=== PATIENT | female | born 1995 | race Caucasian/White ===

== ENCOUNTER 2017-12-14 07:57 | Outpatient (CLI) | payer MEDICAID, SELFPAY ==
[2017-12-14 09:08] LABS: Glucose,1 Hr (Glucola) 113 mg/dL (80-140)
== END 2017-12-14 08:17 ==
PROVIDERS: PCP Nurse Practitioner Family; Visit Provider Advanced Practice Midwife
DX: Z34.93 Encounter for supervision of normal pregnancy, unspecified, third trimester (principal)
CPT/HCPCS: 36415; 82950

== ENCOUNTER 2017-12-28 11:52 | Outpatient (REF) | payer MEDICAID, SELFPAY ==
[2017-12-28 14:52] LABS: Bilirubin Negative (Negative); Blood Negative (Negative); Clarity Clear; Glucose Negative (Negative); Ketones Negative (Negative); Leukocyte Esterase Moderate (Negative); Nitrite Negative (Negative); Specific Gravity 1.015 (1.005-1.025); Urobilinogen 0.2 EU/dL (Up TO 0.2); pH 7.5 (5-8)
[2017-12-28 15:12] LABS: Bacteria Negative HPF (Negative); C & S Indicated? Yes; Casts Negative LPF (Negative); Crystals Negative HPF (Negative); Epithelial Cells Rare HPF (Negative); Mucus Negative (Negative); Other Cells Rare Renal (Negative); RBC 0-2 (0-2); WBC 0-2 HPF (0-5)
== END 2017-12-28 12:12 ==
LOC: LBN 11:52
PROVIDERS: PCP Nurse Practitioner Family; Visit Provider Advanced Practice Midwife
DX: Z34.91 Encounter for supervision of normal pregnancy, unspecified, first trimester (principal)
CPT/HCPCS: 81003; 81015; 87086

== ENCOUNTER 2018-01-31 09:33 | Observation (INO) | payer MEDICAID, SELFPAY | END 2018-01-31 13:15 | disposition home or self-care (01) | PROVIDERS: Admitting Provider Advanced Practice Midwife; PCP Nurse Practitioner Family; Visit Provider Advanced Practice Midwife | DX: Z04.3 Encounter for examination and observation following other accident (principal); W19.XXXA Unspecified fall, initial encounter; Z3A.34 34 weeks gestation of pregnancy | CPT/HCPCS: G0378 ==

== ENCOUNTER 2018-02-08 17:33 | Outpatient (REF) | payer MEDICAID, SELFPAY | END 2018-02-08 17:53 | LOC: LBO 17:33 | PROVIDERS: PCP Nurse Practitioner Family; Visit Provider Advanced Practice Midwife | DX: Z34.93 Encounter for supervision of normal pregnancy, unspecified, third trimester (principal); Z36.85 Encounter for antenatal screening for Streptococcus B | CPT/HCPCS: 87081 ==

== ENCOUNTER 2018-03-04 13:37 | Inpatient (IN) | payer MEDICAID, SELFPAY ==
[2018-03-04 17:53] LABS: HCT 37.9 % (36.0-46.0); HGB 13.1 g/dL (12.0-15.5); Mean Corp. HGB Concentration 34.6 g/dL (32.0-36.0); Mean Corpuscular Hemoglobin 31.2 pg (27.0-33.0); Mean Corpuscular Volume 90.2 fL (80-95); Mean Platelet Volume 10.1 fL (8.0-11.0); Platelet Count 263 x1000/uL (130-400); RBC Distribution Width 13.3 % (11.7-14.6); White Blood Cell Count 18.21 k/cumm (4.4-10.8)
[2018-03-05] MEDS: Normal Saline Flush 10 ML SYR IVP (00:20)
[2018-03-05] MEDS: Lactated Ringers 500 ML IV (00:20)
[2018-03-05] MEDS: Lactated Ringers 1,000 ML 125 ML IV ×3 (00:50→12:15)
[2018-03-05] MEDS: fentaNYL 100 MCG/2 ML VIAL EP (01:30)
[2018-03-05] MEDS: Bupivacaine 0.25% Pres-Free 30 ML VIAL (01:30)
--- NOTE | 2018-03-05 13:23 | PLAC_PTH ---
PATIENT: Fiona Scruggs LOC: OBS U#:[id number] AGE/SX: 22/F ROOM: OBS.300 RE03/04/[address]: Aydee Frank CNM : 1995 BED: A DIS: 03/07/2018 SPEC #: [id number] RECD: 03/09/18 12:34 STATUS: NURY REQ #: [id number] ELAINE: 03/05/18 13:[address]: Aydee Frank DEPT: Surgical Specimen RECD BY: Susu Herman ENTERED: 03/09/18 12:36 SP TYPE: PLAC OTHR DR: Apryl Bello Tissues: 1 - PLACENTA (3RD TRIMESTER) Procedures: GROSS AND MICRO LEVEL 5 Comments: [id number]
[2018-03-05] MEDS: Methylergonovine 0.2 MG/ML VIAL IM (14:02)
[2018-03-05] MEDS: Acetaminophen 325 MG TAB 650 MG PO ×2 (15:12→21:00)
[2018-03-05] MEDS: Ibuprofen 600 MG TAB PO ×2 (15:12→21:01)
[2018-03-05] MEDS: Hamamelis Leaf/Glycerin 100 EACH BOX PR (15:13)
[2018-03-05] MEDS: Docusate Sodium 100 MG CAP PO (21:01)
[2018-03-06 07:27] LABS: Mean Corp. HGB Concentration 34.4 g/dL (32.0-36.0); Mean Corpuscular Hemoglobin 31.5 pg (27.0-33.0); Mean Corpuscular Volume 91.7 fL (80-95); Mean Platelet Volume 9.6 fL (8.0-11.0); Platelet Count 199 x1000/uL (130-400); RBC 3.49 m/cumm (4.00-5.20); RBC Distribution Width 13.3 % (11.7-14.6); White Blood Cell Count 15.71 k/cumm (4.4-10.8)
[2018-03-06] MEDS: Acetaminophen 325 MG TAB 650 MG PO ×3 (09:27→22:18)
[2018-03-06] MEDS: Ibuprofen 600 MG TAB PO ×3 (09:27→22:18)
[2018-03-06] MEDS: Mylanta Suspension 30 ML CUP PO (18:32)
[2018-03-06] MEDS: Docusate Sodium 100 MG CAP PO (22:18)
[2018-03-07] MEDS: Hamamelis Leaf/Glycerin 100 EACH BOX PR (13:30)
== END 2018-03-07 14:00 | disposition home or self-care (01) | DRG 807 ==
PROVIDERS: Admitting Provider Advanced Practice Midwife; PCP Nurse Practitioner Family; Visit Provider Advanced Practice Midwife
DX: O70.0 First degree perineal laceration during delivery (principal); Z37.0 Single live birth; Z3A.39 39 weeks gestation of pregnancy; O92.79 Other disorders of lactation
CPT/HCPCS: 36415; 85027; 86850; 86900; 86901; 88307; J2210; J3010; J3490

== ENCOUNTER 2018-05-09 16:16 | Outpatient (REF) | payer MEDICAID, SELFPAY ==
--- NOTE | 2018-05-09 16:00 | PAPFT_PTH ---
PATIENT: Fiona Scruggs LOC: MAGGIE U#:[id number] AGE/SX: 22/F ROOM: RE05/09/[address]: Mark Hazel RN : 1995 BED: DIS: 05/09/2018 SPEC #: [id number] RECD: 05/09/18 18:02 STATUS: NURY DANIELS #: [id number] ELAINE: 05/09/18 16:[address]: Mark Hazel DEPT: [facility] Cytology RECD BY: Valeria Lake ENTERED: 05/09/18 18:03 SP TYPE: PAPFT OTHR DR: Apryl Bello Tissues: 1 - CX/ENDOCX FOR PAP SMEARS Procedures: PAP THIN PREP/UVM Screening Comments: [id number]
== END 2018-05-09 16:36 ==
LOC: LBN 16:16
PROVIDERS: PCP Nurse Practitioner Family; Visit Provider Advanced Practice Midwife
DX: Z12.4 Encounter for screening for malignant neoplasm of cervix (principal)
CPT/HCPCS: 88142

== ENCOUNTER 2018-06-19 18:54 | Emergency (ER) | payer SELFPAY ==
[2018-06-19 19:08] VITALS: BP 125/67; PULSE 95; RESP 16; TEMP 36.7; O2SAT 98
[2018-06-19] MEDS: Normal Saline 1,000 ML 1000 ML IV (20:21)
[2018-06-19] MEDS: Dicyclomine 20 MG TAB PO (20:21)
[2018-06-19 20:28] LABS: Abs Immature Grans 0.02 k/cumm (0.0-0.09); Absolute Basophil Count 0.04 k/cumm (0.0-0.2); Absolute Eosinophil Count 0.26 k/cumm (0.0-0.7); Absolute Lymphocyte Count 2.15 k/cumm (1.2-3.4); Absolute Monocyte Count 0.74 k/cumm (0.11-0.7); Absolute Neutrophil Count 4.93 k/cumm (1.2-6.7); Basophils % 0.5; Bilirubin Small (Negative); Blood Negative (Negative); Clarity Clear; Eosinophils % 3.2; Glucose Negative (Negative); HCT 41.1 % (36.0-46.0); HGB 14.1 g/dL (12.0-15.5); Immature Grans % 0.2; Ketones 40 mg/dL (Negative); Leukocyte Esterase Negative (Negative); Lymphocytes % 26.4; Mean Corp. HGB Concentration 34.3 g/dL (32.0-36.0); Mean Corpuscular Hemoglobin 30.9 pg (27.0-33.0); Mean Corpuscular Volume 89.9 fL (80-95); Mean Platelet Volume 9.1 fL (8.0-11.0); Monocytes % 9.1; Neutrophils % 60.6; Nitrite Negative (Negative); Platelet Count 376 x1000/uL (130-400); RBC 4.57 m/cumm (4.00-5.20); RBC Distribution Width 12.1 % (11.7-14.6); Urobilinogen 0.2 EU/dL (Up TO 0.2); White Blood Cell Count 8.14 k/cumm (4.4-10.8)
[2018-06-19 20:37] LABS: Bacteria Few HPF (Negative); C & S Indicated? No; Casts Negative LPF (Negative); Crystals Negative HPF (Negative); Epithelial Cells Few HPF (Negative); Mucus Heavy (Negative); Other Cells Negative (Negative); RBC Negative (0-2); WBC 0-2 HPF (0-5)
[2018-06-19 20:45] LABS: ALT 24 U/L (12-78); AST 20 U/L (15-37); Alkaline Phosphatase 73 U/L (46-116); Anion Gap 11.5 mmol/L (3-11); BUN 14 mg/dL (7-18); Bilirubin, Total 1.5 mg/dL (0.2-1.0); CO2 26.5 mmol/L (21.0-32.0); CREATININE 0.83 mg/dL (0.55-1.02); Chloride 104 mmol/L (98-107); Glucose 77 mg/dL (70-100); Lipase 53 U/L (73-393); Potassium 3.5 mmol/L (3.5-5.1); Sodium 142 mmol/L (136-145); Total Protein 7.9 g/dL (6.4-8.2)
--- NOTE | 2018-06-19 20:55 | DI.CT_ITS ---
SYMPTOMS/DIAGNOSIS: RLQ ABD PAIN CT ABDOMEN AND PELVIS: CT scan of the abdomen and pelvis was performed following the uneventful administration of intravenous contrast material. The lung bases show no acute abnormality. The liver is normal in size. No hepatic mass is seen. The gallbladder is negative. No biliary ductal dilatation is seen. The portal, superior mesenteric and spleen veins are patent. The pancreas, spleen and adrenal glands are unremarkable. The kidneys, ureters and bladder are unremarkable. The reproductive organs are unremarkable. The abdominal aorta is of normal caliber. Incidental note is made of a retroaortic left renal vein. No significant abdominal or pelvic adenopathy, ascites or pneumoperitoneum is present. The bowel shows no evidence of obstruction or inflammation. There is a normal appendix in the present. No acute osseous abnormality is identified. IMPRESSION: No evidence of an acute abdomen.
[2018-06-19] MEDS: Omnipaque 350 MG/ML 100 ML BTL IJ (20:56)
--- NOTE | 2018-06-19 21:03 | ED.GENADUL_ITS ---
Discharge Plan Disposition Patient Disposition: HOME Condition: Good Discharge Details Chief Complaint: Abd Prob Clinical Impression: Abdominal pain Primary Care Provider: Apryl Bello ED Provider: Artemio Appiah Home Meds and New Rx's Prescriptions: No Action No Known Home Meds RF: 0 Discharge Instructions Instructions: Abdominal Pain (ED) Additional Instructions: Please follow-up promptly for your ultrasound of your gallbladder. You will be contacted for this appointment. Please pump and dump for the next 24 hours for your breast-feeding to the resume breast-feeding. If you notice any worsening of your symptoms, or any new symptoms such as vomiting, diarrhea, fever, chills, shortness of breath, chest pain, numbness, weakness, or fainting , please return immediately to the emergency department for reevaluation. Please follow up with your primary care provider as soon as possible for reassessment and reevaluation. As always, it was a pleasure participating in your medical care today. Referrals: Apryl Bello [Primary Care Provider] - Medical Decision Making This is a 22-year-old female with no significant past medical history who presents today for evaluation of right lower quadrant abdominal pain for the last 24 hours, is been associated with bloating. She has had no vomiting, and s he did have one episode of diarrhea yesterday. Exam demonstrates reproducible right lower quadrant pain, no significant pelvic pain on exam. No complaint of vaginal discharge or STDs. Due to the location of the pain the nature of her symptoms we will get a CT scan to rule out appendicitis, we will rehydrate the patient, evaluate for UTI as well. 10:[address] scan has resulted in per virtual radiology there is no acute process in the abdomen, gallbladder is normal, and appendix is visualized and normal. Patient's laboratory workup has returned, no white count, no significant leukoc ytosis or bandemia. No left shift. Electrolytes are within normal limits, renal function stable, lipase normal. Urinalysis shows no signs of infection. Concern for mild dehydration with 40 ketones. Glucose normal. Bilirubin slightly elevated at 1.5, with a conjugated of 0.31, however with a normal CT scan for her gallbladder, as well as a negative Schmitt sign, and no right upper quadrant tenderness on exam, and signs and symptoms clinically inconsistent for acute cholecystitis at this time clinically I do not feel that emergent transfer for ultrasound is indicated. Patient is feeling much better after Bentyl. I do recommend 24 hours of pump and dump for her breast-feeding, secondary to the CT scan and Bentyl until she resumes breast-feeding. We will order an outpatient ultrasound of her gallbladder to be performed as this may be causing her nausea. With a normal-appearing CT scan, notably reassuring physical exam on both initial assessment and reassessment, and no clinical signs of an acute surgical pathology in her abdomen at this time, I feel she can be safely discharged home with close follow-up. I have extensively reviewed the treatment plan and discharge instructions with the patient and their family. I have addressed all patient concerns at this time. The patient and family was made aware of what symptoms to monitor for that would warrant a return to the [facility]. Discussed the plan with the patient and family, they demonstrate verbal understanding and agreement with our assessment and plan at this time. EXAM DATE/TIME: 06/19/2018 8:09 PM CLINICAL HISTORY: 22 years old, female; Pain and signs and symptoms; Bloating and other: Diarrhea; Abdominal pain; Localized; Right lower quadrant (rlq); Patient HX: Abd pain for 24 hours, diarrhea and bloating. Pain mostly rlq and mid abd TECHNIQUE: Imaging protocol: Axial computed tomography images of the abdomen and pelvis with intravenous contrast. Coronal and sagittal reformatted images were created and reviewed. Radiation optimization: All CT scans at this facility use at least one of these dose optimization techniques: automated exposure control; mA and/or kV adjustment per patient size (includes targeted exams where dose is matched to clinical indication); or iterative reconstruction. Contrast material: Omnipaque 350 Contrast volume: 97 ml Contrast route: IV RAC COMPARISON: OB US 2-3 TRI TRANSABD 10/07/2017 12:23 PM FINDINGS: Lower thorax: No acute findings. ABDOMEN: Liver: Prominent Elizabeth's lobe. Gallbladder and bile ducts: Normal. No calcified stones. No ductal dilation. Pancreas: Normal. No ductal dilation. Spleen: Normal. No splenomegaly. Adrenals: Normal. No mass. Kidneys and ureters: Normal. No hydronephrosis. Stomach and bowel: Normal. No obstruction. No mucosal thickening. Appendix: A normal appendix is identified. PELVIS: Bladder: Unremarkable as visualized. Reproductive: Unremarkable as visualized. ABDOMEN and PELVIS: Intraperitoneal space: Normal. No free air. No significant fluid collection. Bones/joints: No acute fracture. No dislocation. Soft tissues: Unremarkable. Vasculature: Retroaortic left renal vein. Lymph nodes: Normal. No enlarged lymph nodes. IMPRESSION: No evidence of acute abdominopelvic pathology. Dictated and Authenticated by: Shankar Ang MD. HPI General Date/Time Provider Initiated Documentation: 06/19/18 19:02 . HPI Narrative: This is a 22-year-old female with no significant past medical history who recently had a baby 3 months ago, via vaginal delivery, who presents today for evaluation of abdominal pain. Patient states that for the last 24 hours she has had right lower quadrant abdominal pain, with associated bloating. She had one episode of diarrhea yesterday. She denies any vomiting but does admit to mild nausea. She denies any vaginal discharge, dysuria or hematuria or urinary frequency. There appears to be no aggravating or relieving factors. She describes it as achy in nature, with no significant radiation away from the right lower quadrant. She denies any other complaints at this time she denies any hematochezia, melena, acholic stool, hematemesis, cough, shortness of breath, fever or chills numbness tingling or weakness. She denies any previous abdominal surgeries peer Related Data Home Medications Medication Instructions Recorded Confirmed Unknown [No Known Home Meds] 06/19/18 06/19/18 Allergies Allergy/AdvReac Type Severity Reaction Status Date / Time No Known Allergies Allergy Unverified 06/19/18 19:17 General Stated Complaint: Abd Prob JULISSA: 3 Review of Systems Review of Systems All systems reviewed & are unremarkable except as noted in HPI and below PFSH Family History Mother Asthma Maternal Uncle Substance abuse Social History Smoking/Tobacco Use Status: Former Tobacco Use Drug use: Daily Substance use type: marijuana Do you feel safe at home: Yes Do you feel safe in your relationship?: Yes History History 1 Para 1 Hx # Term Pregnancies 1 Multiple births 0 Hx # Pregnancies 0 Ectopic pregnancies 0 AB induced 0 Hx Number of Living Children 1 AB spontaneous 0 Past Pregnancies Del. Date GA/Weeks # Outcome Route Wgt Sex Labor Lgth Anesthesia Location Prov Complic 03/05/18 39 No Successful vaginal 3.742 kg Male [facility] CN[facility] Delivery Date: 03/05/18 On 03/17/18 @ 12:[address] [place] placenta with trailing membranes, intact with 3VC. Exam Narrative Exam Narrative: 1.Const: Well-nourished, Well-developed, appearing stated age 2.Eyes: PERRL, no conjunctival injection, and symmetrical lids. 3.ENT: Atraumatic external nose and ears. Moist MM. Neck: Symmetric, trachea midline, No thyromegaly. 4.CVS: +S1/S2, No murmurs or gallops. Peripheral pulses 2+ and equal in all extremities. Brisk capillary refill in all extremities. 5.RESP: Unlabored respiratory effort. Clear to auscultation bilaterally. No wheezes rales or rhonchi 6.GI: Soft,Nondistended, No hepatosplenomegaly. No guarding or rebound. Mild right lower quadrant tenderness, mild positive Rovsing sign. Negative obturator and psoas sign. Minimal right-sided CVA tenderness. Negative Schmitt sign. 7.MSK: Normocephalic/Atraumatic, Extremities w/o deformity or ttp No cyanosis or clubbing, Normal movement of all extremities 8.Skin: Warm, Dry. No rashes or lesions. 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 Sensation grossly intact, no focal neurologic deficits. 10.Psych: (AAO) x3. Appropriate mood and affect Course Vital Signs Temperature 36.7 C 06/19/18 19:08 Pulse 95 H 06/19/18 19:08 Respiratory Rate 16 06/19/18 19:08 Blood Pressure 125/67 06/19/18 19:08 Pulse Oximetry 98 06/19/18 19:08 Temperature 36.7 C 06/19/18 19:08 Temperature Source Temporal Artery Scan 06/19/18 19:08 Pulse 95 H 06/19/18 19:08 Respiratory Rate 16 06/19/18 19:08 Respiratory Effort 06/19/18 19:08 Blood Pressure 125/67 06/19/18 19:08 Pulse Oximetry 98 06/19/18 19:08 Oxygen Delivery Method Room Air 06/19/18 19:08 Oxygen Flow Rate 0 06/19/18 19:08 Pain Level 9 06/19/18 19:08 Lab/Test Results Lab/Test Results: Laboratory Tests Range/Units 06/19/18 06/19/18 06/19/18 20:15 20:15 20:15 WBC (4.4-10.8) k/cumm 8.14 RBC (4.00-5.20) m/cumm 4.57 Hgb (12.0-15.5) g/dL 14.1 Hct (36.0-46.0) % 41.1 MCV (80-95) fL 89.9 MCH (27.0-33.0) pg 30.9 MCHC (32.0-36.0) g/dL 34.3 RDW (11.7-14.6) % 12.1 Plt Count (130-400) x1000/uL 376 MPV (8.0-11.0) fL 9.1 Immature Gran % 0.2 Neutrophils % 60.6 Lymphocytes % 26.4 Monocytes % 9.1 Eosinophils % 3.2 Basophils % 0.5 Absolute Neutrophils (1.2-6.7) k/cumm 4.93 Absolute Lymphocytes (1.2-3.4) k/cumm 2.15 Absolute Monocytes (0.11-0.7) k/cumm 0.74 H Absolute Eosinophils (0.0-0.7) k/cumm 0.26 Absolute Basophils (0.0-0.2) k/cumm 0.04 Sodium (136-145) mmol/L 142 Potassium (3.5-5.1) mmol/L 3.5 Chloride (98-107) mmol/L 104 Carbon Dioxide (21.0-32.0) mmol/L 26.5 Anion Gap (3-11) mmol/L 11.5 H BUN (7-18) mg/dL 14 Creatinine (0.55-1.02) mg/dL 0.83 Estimated GFR/1.73 m2 (mL/min/1.73m2) >= 60.00 Glucose (70-100) mg/dL 77 Calcium (8.5-10.1) mg/dL 9.0 Total Bilirubin (0.2-1.0) mg/dL 1.5 H AST (15-37) U/L 20 ALT (12-78) U/L 24 Alkaline Phosphatase (46-116) U/L 73 Total Protein (6.4-8.2) g/dL 7.9 Albumin (3.4-5.0) g/dL 4.0 Lipase (73-393) U/L 53 L Urine Color (Yellow) Yellow Urine Clarity Clear Urine pH (5-8) 7.0 Ur Specific [place] (1.005-1.025) 1.020 Urine Protein (Negative) mg/dL 30 H Urine Ketones (Negative) mg/dL 40 H Urine Blood (Negative) Negative Urine Nitrite (Negative) Negative Urine Bilirubin (Negative) Small H Urine Urobilinogen (Up TO 0.2) EU/dL 0.2 Ur Leukocyte Esterase (Negative) Negative Urine RBC (0-2) Negative Urine WBC (0-5) HPF 0-2 Ur Epithelial Cells (Negative) HPF Few Urine Crystals (Negative) HPF Negative Urine Bacteria (Negative) HPF Few Urine Casts (Negative) LPF Negative Urine Mucus (Negative) Heavy Urine Other (Negative) Negative Ur Culture Indicated? No Urine Glucose (Negative) mg/dL Negative POC- Test(urine) Negative
[2018-06-19] MEDS: Normal Saline Flush 10 ML SYR IV (21:11)
[2018-06-19 21:29] LABS: Bilirubin, Direct 0.31 mg/dL (0.00-0.20)
--- NOTE | 2018-06-19 22:27 | DI.VRAD_ITS ---
EXAM: CT Abdomen and Pelvis With Contrast EXAM DATE/TIME: 06/19/2018 8:09 PM CLINICAL HISTORY: 22 years old, female; Pain and signs and symptoms; Bloating and other: Diarrhea; Abdominal pain; Localized; Right lower quadrant (rlq); Patient HX: Abd pain for 24 hours, diarrhea and bloating. Pain mostly rlq and mid abd TECHNIQUE: Imaging protocol: Axial computed tomography images of the abdomen and pelvis with intravenous contrast. Coronal and sagittal reformatted images were created and reviewed. Radiation optimization: All CT scans at this facility use at least one of these dose optimization techniques: automated exposure control; mA and/or kV adjustment per patient size (includes targeted exams where dose is matched to clinical indication); or iterative reconstruction. Contrast material: Omnipaque 350 Contrast volume: 97 ml Contrast route: IV RAC COMPARISON: OB US 2-3 TRI TRANSABD 10/07/2017 12:23 PM FINDINGS: Lower thorax: No acute findings. ABDOMEN: Liver: Prominent Elizabeth's lobe. Gallbladder and bile ducts: Normal. No calcified stones. No ductal dilation. Pancreas: Normal. No ductal dilation. Spleen: Normal. No splenomegaly. Adrenals: Normal. No mass. Kidneys and ureters: Normal. No hydronephrosis. Stomach and bowel: Normal. No obstruction. No mucosal thickening. Appendix: A normal appendix is identified. PELVIS: Bladder: Unremarkable as visualized. Reproductive: Unremarkable as visualized. ABDOMEN and PELVIS: Intraperitoneal space: Normal. No free air. No significant fluid collection. Bones/joints: No acute fracture. No dislocation. Soft tissues: Unremarkable. Vasculature: Retroaortic left renal vein. Lymph nodes: Normal. No enlarged lymph nodes. IMPRESSION: No evidence of acute abdominopelvic pathology. Dictated and Authenticated by: Shankar Ang MD. Ordering:DENNY Ulloa MD
[2018-06-19 23:04] VITALS: BP 120/58; PULSE 71; RESP 16; O2SAT 97
== END 2018-06-19 23:06 | disposition home or self-care (01) ==
PROVIDERS: Emergency Provider Student in an Organized Health Care Education/Training Program; PCP Nurse Practitioner Family
DX: R10.9 Unspecified abdominal pain (principal)
CPT/HCPCS: 36415; 80053; 81025; 83690; 96360; 96361; 99285; 74177; 81003; 81015; 82248; 85025; 99284; J3490

== ENCOUNTER 2019-04-20 07:41 | Emergency (ER) | payer SELFPAY ==
[2019-04-20 07:43] VITALS: BP 117/74; PULSE 100; RESP 16; TEMP 36.4; O2SAT 98
[2019-04-20] MEDS: Normal Saline 1,000 ML 1000 ML IV (08:23)
[2019-04-20] MEDS: Ondansetron 4 MG/2 ML VIAL IVP ×2 (08:23→10:15)
[2019-04-20 08:40] LABS: Abs Immature Grans 0.04 k/cumm (0.0-0.09); Absolute Basophil Count 0.02 k/cumm (0.0-0.2); Basophils % 0.1; Eosinophils % 0.5; HCT 48.2 % (36.0-46.0); HGB 16.6 g/dL (12.0-15.5); Immature Grans % 0.2 %; Mean Corp. HGB Concentration 34.4 g/dL (32.0-36.0); Mean Corpuscular Hemoglobin 30.5 pg (27.0-33.0); Mean Corpuscular Volume 88.4 fL (80-95); Monocytes % 4.8; Neutrophils % 91.4; Platelet Count 409 x1000/uL (130-400); RBC 5.45 m/cumm (4.00-5.20); RBC Distribution Width 12.3 % (11.7-14.6); White Blood Cell Count 16.63 k/cumm (4.4-10.8)
[2019-04-20 08:41] LABS: Absolute Eosinophil Count 0.08 k/cumm (0.0-0.7)
[2019-04-20 08:47] LABS: ALT 19 U/L (14-59); AST 17 U/L (15-37); Albumin 4.3 g/dL (3.4-5.0); Alkaline Phosphatase 63 U/L (46-116); BUN 15 mg/dL (7-18); CREATININE 0.72 mg/dL (0.55-1.02); Calcium 8.9 mg/dL (8.5-10.1); Chloride 104 mmol/L (98-107); Glucose 113 mg/dL (74-106); Lipase 73 U/L (73-393); Potassium 4.4 mmol/L (3.5-5.1); Sodium 142 mmol/L (136-145); Total Protein 8.3 g/dL (6.4-8.2)
--- NOTE | 2019-04-20 09:44 | ED.GENADUL_ITS ---
Discharge Plan Disposition Patient Disposition: HOME Condition: Good Discharge Details Chief Complaint: Nausea/Vomit/Diar Clinical Impression: Nausea and vomiting Primary Care Provider: Apryl Bello ED Provider: Artemio Appiah Home Meds and New Rx's Prescriptions: New ondansetron HCl [Zofran] 4 mg tablet 4 mg PO Q6H Qty: 20 RF: 0 Discharge Instructions Instructions: Acute Nausea and Vomiting (ED) Additional Instructions: At this time I feel that your symptoms are likely secondary to a virus. Please drink 10 to 12 cups of water per day. If you notice any worsening of your symptoms, or any new symptoms such as vomiting, diarrhea, fever, chills, shortness of breath, chest pain, numbness, weakness, or fainting , please return immediately to the emergency department for reevaluation. Please follow up with your primary care provider as soon as possible for reassessment and reevaluation. As always, it was a pleasure participating in your medical care today. Stand Alone Forms: Work Release Referrals: Apryl Bello [Primary Care Provider] - Medical Decision Making This is a 23-year-old female with no significant past medical history who presents today for evaluation of diarrhea and vomiting that started at 1 AM. She states that she has had multiple episodes. She admits to mild crampiness in her abdomen generalized, primarily in the epigastric region, however she denies any significant pain. She denies any recent IV or illicit drug use, , hematemesis, hematochezia melena or acholic stool. She does admit to other sick contacts with similar symptoms. She denies any other complaints at this time. No other modifying factors. No previous abdominal surgeries. Physical exam demonstrates no evidence of an acute surgical abdomen. No other significant abnormalities. Mucosa is notably dry. Differential is highest for viral gastroenteritis, multiple other people from her workplace have shown appear today with similar symptoms. Will rehydrate, treat with Zofran and reassess. With no clinical evidence of appendicitis, or acute cholecystitis, I see no current clinical indication for radiographic imaging or radiation exposure. 9:57 AM On reassessment after p.o. trial the patient has tolerated this well, no vomiting, she is feeling much better and would like to go home. Electrolytes are normal, white count is elevated I imagine this is slightly reactive. She does appear to be slightly hemoconcentrated as well which correlates well clinically. Lipase is normal. Patient states that she feels ready to go home right now. We will give Zofran for home use, recommend continuation of electrolytes. Vital signs are stable. Discussed red flags which to return. This time signs and symptoms and consistent with an acute surgical abdomen appendicitis or cholecystitis, and clinically consistent with a viral gastroenteritis. I have extensively reviewed the treatment plan and discharge instructions with the patient. I have addressed all patient concerns at this time. The patient was made aware of what symptoms to monitor for that would warrant a return to the emergency department. Discussed the plan with the patient, they demonstrate verbal understanding and agreement with our assessment and plan at this time. HPI General Date/Time Provider Initiated Documentation: 04/20/19 08:04 . HPI Narrative: This is a 23-year-old female with no significant past medical history who presents today for evaluation of diarrhea and vomiting that started at 1 AM. She states that she has had multiple episodes. She admits to mild crampiness in her abdomen generalized, primarily in the epigastric region, however she denies any significant pain. She denies any recent IV or illicit drug use, , hematemesis, hematochezia melena or acholic stool. She does admit to other sick contacts with similar symptoms. She denies any other complaints at this time. No other modifying factors. No previous abdominal surgeries. No recent antibiotics, no foreign travel. Related Data Home Medications Medication Instructions Recorded Confirmed ondansetron HCl [Zofran] 4 mg PO Q6H #20 tab 04/20/19 Previous Rx's Medication Instructions Recorded ondansetron HCl [Zofran] 4 mg PO Q6H #20 tab 04/20/19 Allergies Allergy/AdvReac Type Severity Reaction Status Date / Time No Known Allergies Allergy Unverified 06/19/18 19:17 General Stated Complaint: Nausea/Vomit/Diar JULISSA: 3 Review of Systems All systems reviewed & are unremarkable except as noted in HPI and below PFSH Family History Mother Asthma Maternal Uncle Substance abuse Social History Smoking/Tobacco Use Status: Former Tobacco Use Drug use: Daily Substance use type: marijuana Do you feel safe at home: Yes Do you feel safe in your relationship?: Yes History History 1 Para 1 Hx # Term Pregnancies 1 Multiple births 0 Hx # Pregnancies 0 Ectopic pregnancies 0 AB induced 0 Hx Number of Living Children 1 AB spontaneous 0 Past Pregnancies Del. Date GA/Weeks # Outcome Route Wgt Sex Labor Lgth Anesthes ia Location Prov Complic 03/05/18 39 No Successful vaginal 3.742 kg Male [facility] Frank CNM Delivery Date: 03/05/18 On 03/17/18 @ 12:[address] [place] placenta with trailing membranes, intact with 3VC. Exam Narrative Exam Narrative: 1.Const: Well-nourished, Well-developed, appearing stated age 2.Eyes: PERRL, no conjunctival injection, and symmetrical lids. 3.ENT: Atraumatic external nose and ears. Moist MM. Neck: Symmetric, trachea midline, No thyromegaly. 4.CVS: +S1/S2, No murmurs or gallops. Peripheral pulses 2+ and equal in all extremities. Brisk capillary refill in all extremities. 5.RESP: Unlabored respiratory effort. Clear to auscultation bilaterally. No wheezes rales or rhonchi 6.GI: Soft, Nontender/Nondistended, No hepatosplenomegaly. No guarding or rebound. No pain at McBurney's point, negative Schmitt sign. No acute surgical abdomen. 7.MSK: Normocephalic/Atraumatic, Extremities w/o deformity or ttp No cyanosis or clubbing, Normal movement of all extremities 8.Skin: Warm, Dry. No rashes or lesions. 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 Sensation grossly intact, no focal neurologic deficits. 10.Psych: (AAO) x3. Appropriate mood and affect Course Vital Signs Vital signs: Vital Signs Temperature 36.4 C L 04/20/19 07:43 Pulse 100 H 04/20/19 07:43 Respiratory Rate 16 04/20/19 07:43 Blood Pressure 117/74 04/20/19 07:43 Pulse Oximetry 98 04/20/19 07:43 Temperature 36.4 C L 04/20/19 07:43 Temperature Source Skin 04/20/19 07:43 Pulse 100 H 04/20/19 07:43 Respiratory Rate 16 04/20/19 07:43 Respiratory Effort 04/20/19 07:45 Blood Pressure 117/74 04/20/19 07:43 Pulse Oximetry 98 04/20/19 07:43 Oxygen Delivery Method Room Air 04/20/19 07:43 Oxygen Flow Rate 0 04/20/19 07:43 Pain Level 7 04/20/19 07:43 Lab/Test Results Lab/Test Results: Laboratory Tests Range/Units 04/20/19 04/20/19 08:12 08:12 WBC (4.4-10.8) k/cumm 16.63 H RBC (4.00-5.20) m/cumm 5.45 H Hgb (12.0-15.5) g/dL 16.6 H Hct (36.0-46.0) % 48.2 H MCV (80-95) fL 88.4 MCH (27.0-33.0) pg 30.5 MCHC (32.0-36.0) g/dL 34.4 RDW (11.7-14.6) % 12.3 Plt Count (130-400) x1000/uL 409 H MPV (8.0-11.0) fL 9.0 Immature Gran % % 0.2 Neutrophils % 91.4 Lymphocytes % 3.0 Monocytes % 4.8 Eosinophils % 0.5 Basophils % 0.1 Absolute Neutrophils (1.2-6.7) k/cumm 15.20 H Absolute Lymphocytes (1.2-3.4) k/cumm 0.50 L Absolute Monocytes (0.11-0.7) k/cumm 0.80 H Absolute Eosinophils (0.0-0.7) k/cumm 0.08 Absolute Basophils (0.0-0.2) k/cumm 0.02 Sodium (136-145) mmol/L 142 Potassium (3.5-5.1) mmol/L 4.4 Chloride (98-107) mmol/L 104 Carbon Dioxide (21.0-32.0) mmol/L 28.0 Anion Gap (3-11) mmol/L 10.0 BUN (7-18) mg/dL 15 Creatinine (0.55-1.02) mg/dL 0.72 Estimated GFR/1.73 m2 (mL/min/1.73m2) >= 60.00 Glucose (74-106) mg/dL 113 H Calcium (8.5-10.1) mg/dL 8.9 Total Bilirubin (0.2-1.0) mg/dL 1.0 AST (15-37) U/L 17 ALT (14-59) U/L 19 Alkaline Phosphatase (46-116) U/L 63 Total Protein (6.4-8.2) g/dL 8.3 H Albumin (3.4-5.0) g/dL 4.3 Lipase (73-393) U/L 73
[2019-04-20 10:16] VITALS: BP 110/61; PULSE 85; RESP 18; TEMP 37; O2SAT 95
== END 2019-04-20 10:16 | disposition home or self-care (01) ==
PROVIDERS: Emergency Provider Student in an Organized Health Care Education/Training Program; PCP Nurse Practitioner Family
DX: R11.2 Nausea with vomiting, unspecified (principal); R10.13 Epigastric pain; A08.4 Viral intestinal infection, unspecified
CPT/HCPCS: 36415; 80053; 81025; 83690; 96361; 96374; 96376; 99284; 85025; J2405

== ENCOUNTER 2019-12-25 16:14 | Outpatient (REF) | payer SELFPAY ==
[2019-12-27 08:46] LABS: Chlamydia Result Negative (Negative); GC Result Negative (Negative)
== END 2019-12-25 16:34 ==
LOC: LBN 16:14
PROVIDERS: PCP Nurse Practitioner Family; Visit Provider Obstetrics & Gynecology
DX: Z11.3 Encounter for screening for infections with a predominantly sexual mode of transmission (principal)
CPT/HCPCS: 87491; 87591

== ENCOUNTER 2020-03-08 10:32 | Outpatient (REF) | payer SELFPAY ==
[2020-03-09 22:10] LABS: COVID-19 RT-PCR UVMMC Result Negative (Negative)
== END 2020-03-08 10:52 ==
LOC: LBN 10:32
PROVIDERS: PCP Nurse Practitioner Family; Visit Provider Pediatrics
DX: Z11.59 Encounter for screening for other viral diseases (principal)
CPT/HCPCS: U0003

== ENCOUNTER 2020-05-14 03:13 | Outpatient (CLI) | payer MEDICAID, SELFPAY ==
[2020-05-14 15:06] LABS: Abs Immature Grans 0.06 10^3/uL (0.0-0.06); Absolute Basophil Count 0.03 10^3/uL (0.0-0.2); Absolute Eosinophil Count 0.14 10^3/uL (0.0-0.7); Absolute Monocyte Count 0.71 10^3/uL (0.1-0.8); Absolute Neutrophil Count 9.01 10^3/uL (1.2-6.7); Basophils % 0.2; Eosinophils % 1.1; HGB 14.1 g/dL (11.2-15.7); Immature Grans % 0.5; MCH 31.5 pg (27.0-33.0); MCHC 35.3 % (32.0-36.0); MCV 89.5 fL (80-95); MPV 9.1 fL (8.0-11.0); Monocytes % 5.5; Neutrophils % 69.7; Nucleated RBC 0 %; Platelet Count 351 10^3/uL (130-400); RBC 4.47 10^6/uL (3.93-5.22); RDW 11.7 % (11.7-14.6); RDW-SD 37.8 fL; WBC 12.93 10^3/uL (4.4-10.8)
[2020-05-14 15:08] LABS: Absolute Lymphocyte Count 2.97 10^3/uL (1.2-3.4)
[2020-05-14 16:20] LABS: *AMPHETAMINES SCREEN URINE Negative (Negative); *BARBITURATES SCREEN URINE Negative (Negative); *BENZODIAZEPINES SCREEN URINE Negative (Negative); Cannabinoids THC POSITIVE (Negative); Cocaine Screen,Urine Negative (Negative); METHADONE URINE SCREEN Negative (Negative); OPIATES URINE SCREEN Negative (Negative)
[2020-05-14 16:31] LABS: TSH (W/Ref FT4) 1.66 uIU/mL (0.36-3.74)
[2020-05-14 16:33] LABS: Tricyclic Antidepressants Negative (Negative)
[2020-05-15 10:05] LABS: Varicella IgG Antibody Negative (See Note)
[2020-05-15 11:06] LABS: Hepatitis B Surface Ag Negative (Negative)
[2020-05-15 11:18] LABS: Rubella IgG Ab (UVM) Equivocal (See Note)
[2020-05-15 11:34] LABS: Hepatitis C Ab w Rflx HCV PCR Negative (Negative)
[2020-05-15 11:41] LABS: HIV-1/2 Ag & Ab Screen Negative (Negative)
[2020-05-16 11:17] LABS: Syphilis Total Ab w/Reflex Nonreactive (Nonreactive)
[2020-05-17 14:21] LABS: Chlamydia Result Negative (Negative); GC Result Negative (Negative)
[2020-05-20 23:10] LABS: Buprenorphine Negative ng/mL (Cutoff: 5.0); Norbuprenorphine Negative ng/mL (Cutoff: 2.5)
== END 2020-05-14 03:14 | disposition home or self-care (01) ==
LOC: LBO 03:13
PROVIDERS: PCP Nurse Practitioner Family; Visit Provider Advanced Practice Midwife
DX: Z34.91 Encounter for supervision of normal pregnancy, unspecified, first trimester (principal); Z11.3 Encounter for screening for infections with a predominantly sexual mode of transmission; Z11.4 Encounter for screening for human immunodeficiency virus [HIV]; Z11.59 Encounter for screening for other viral diseases; Z13.29 Encounter for screening for other suspected endocrine disorder; Z01.84 Encounter for antibody response examination
CPT/HCPCS: 36415; 80307; 86787; 86803; 86850; 86900; 86901; 87340; 87389; 87491; 87591; 84443; 85025; 86762; 86780; 87086

== ENCOUNTER 2020-06-03 18:08 | Outpatient (REF) | payer MEDICAID, SELFPAY | END 2020-06-03 18:09 | disposition home or self-care (01) | LOC: LBN 18:08 | PROVIDERS: PCP Nurse Practitioner Family; Visit Provider Advanced Practice Midwife | DX: R30.0 Dysuria (principal) | CPT/HCPCS: 87086 ==

== ENCOUNTER 2020-06-29 10:02 | Outpatient (REF) | payer MEDICAID, SELFPAY ==
[2020-06-29 11:23] LABS: Source Nasal/Nares
[2020-06-29 15:55] LABS: COVID-19 PCR Negative (Negative)
== END 2020-06-29 10:03 | disposition home or self-care (01) ==
LOC: LBN 10:02
PROVIDERS: Nurse Practitioner Family; PCP Nurse Practitioner Family; Visit Provider Nurse Practitioner Family
DX: Z20.822 Contact with and (suspected) exposure to COVID-19 (principal)
CPT/HCPCS: 87635

== ENCOUNTER 2020-07-01 16:10 | Outpatient (REF) | payer MEDICAID, SELFPAY | END 2020-07-01 16:11 | disposition home or self-care (01) | LOC: LBN 16:10 | PROVIDERS: PCP Nurse Practitioner Family; Visit Provider Nurse Practitioner Family | DX: R30.0 Dysuria (principal) | CPT/HCPCS: 87086 ==

== ENCOUNTER 2020-07-16 01:37 | Outpatient (CLI) | payer MEDICAID, SELFPAY ==
--- NOTE | 2020-07-16 07:45 | DI.US_ITS ---
Exam(s) US OB 2-3 TRIMESTER EXAM: US OB 2-3 TRIMESTER CLINICAL HISTORY: anatomy US EVIE 12/07/20,Z34.90. TECHNIQUE: Transabdominal obstetrical ultrasound performed. COMPARISON: No priors for comparison. FINDINGS: Transabdominal obstetrical ultrasound performed. FINDINGS: Number of fetuses: One. position: Vertex. heart rate: 163 bpm. Placental location: Anterior. No evidence of previa. Amniotic fluid index: Amount of fluid is within normal limits. ANATOMICAL SURVEY: Within normal limits. BIOMETRIC DATA: BPD: 4.7cm consistent with 20 weeks 1 days. HC: 17.4cm consistent with 20 weeks. AC: 14.7cm consistent with 20 weeks. FL: 3.0cm consistent with 19 weeks 1 day. Cisterna Magna: 4.1 mm Cerebellum: 1.99 cm Composite Age: 19 weeks 6 days EDC by US: 12/04/2020 Heart Rate: 163BPM IMPRESSION: 1. Single live intrauterine gestation as above. 2. Normal anatomic survey. DATA REPOSITORY:
== END 2020-07-16 01:57 ==
PROVIDERS: PCP Nurse Practitioner Family; Visit Provider Advanced Practice Midwife
DX: Z34.92 Encounter for supervision of normal pregnancy, unspecified, second trimester (principal); Z3A.20 20 weeks gestation of pregnancy
CPT/HCPCS: 76805

== ENCOUNTER 2020-09-11 03:48 | Outpatient (CLI) | payer MEDICAID, SELFPAY ==
[2020-09-11 15:23] LABS: Glucose,1 Hr (Glucola) 123 mg/dL (80-140)
[2020-09-11 15:30] LABS: Absolute Monocyte Count 0.75 10^3/uL (0.1-0.8); Basophils % 0.4; Eosinophils % 0.4; HCT 35.4 % (36.0-46.0); Immature Grans % 1.5; Lymphocytes % 15.9; MCHC 33.9 % (32.0-36.0); MCV 91.5 fL (80-95); MPV 9.2 fL (8.0-11.0); Monocytes % 5.6; Neutrophils % 76.2; Nucleated RBC 0 %; Platelet Count 288 10^3/uL (130-400); RBC 3.87 10^6/uL (3.93-5.22); RDW-SD 40.2 fL; WBC 13.42 10^3/uL (4.4-10.8)
[2020-09-11 15:35] LABS: Absolute Basophil Count 0.05 10^3/uL (0.0-0.2); Absolute Eosinophil Count 0.05 10^3/uL (0.0-0.7); Absolute Lymphocyte Count 2.13 10^3/uL (1.2-3.4); Absolute Neutrophil Count 10.23 10^3/uL (1.2-6.7)
== END 2020-09-11 03:49 | disposition home or self-care (01) ==
PROVIDERS: PCP Nurse Practitioner Family; Visit Provider Nurse Practitioner Women's Health
DX: Z34.83 Encounter for supervision of other normal pregnancy, third trimester (principal)
CPT/HCPCS: 36415; 82950; 85025

== ENCOUNTER 2020-10-03 11:58 | Observation (INO) | payer MEDICAID, SELFPAY ==
--- NOTE | 2020-10-03 11:50 | HPE_ITS ---
Date of service: 10/03/20 Time of Service: 11:50 Assessment and Plan Assessment and plan (1) Nausea and vomiting during : Start date: 10/03/20 Start time: 11:56 Status: Acute Assessment and plan: will place on observation, give IV fluids per patient request as she feels weak. Administer IV Zofran and complete NST. Patient requests note for out of work for her next shift. Plan discharge to home to rest once IV hydration is complete. ALBERTO OB-HPI Labor/Delivery History of Present Illness Chief Complaint: Illness (nausea and vomiting for greater than 12 hours after eating meal. some abdominal cramping.) , Associated Signs and Symptoms of Illness: no fever, chills or diarrhea. baby is active. no contractions. had urine loss with vomiting but no leaking of fluid vaginally.ALBERTO. EVIE Calculator Estimated Delivery Date Method Current WG Current Estimate 12/07/20 LMP (Certain) 30w 5d Other Estimates 12/07/20 Ultrasound #1 30w 5d History of Present Expected Delivery Route/Plan - CNM FOB/ - Alon Elizabeth (2nd child together) BB no circ- Shree Varicella Non-Immune, Rubella Equivocal. Plan MMR & Varicella vaccines Specific Issues/Plan 1. Hx asthma, Hx depression. Declines referral to [facility]. 2. Declines genetic & Quad screen testing, form signed 3. Daily MJ user, counseled, discussed UDS @ 28 wks and possible need for POSC 4. Varicella non-immune - offer vaccine post , discuss with Fiona 07/16/20 5. Rubella Immunty is equivocal, offer MMR , discussed with Fiona 07/16/20. Assessment: History Reviewed & Current Review of Systems All systems reviewed & are unremarkable except as noted in HPI and below PFSH Medical History Breast lump 02/2020. Right breast. Normal clinical breast exam. Encounter for screening for other viral diseases Marijuana use Screening examination for sexually transmitted disease Family History Mother Asthma Maternal Uncle Substance abuse Social History Smoking/Tobacco Use Status: Former Tobacco Use Smoking risk assessment performed?: Yes Drug use: Daily Substance use type: marijuana Household members: children and other Details: S-[employer]hel[employer]. Number of Children: 1 Do you feel safe at home: Yes Do you feel safe in your relationship?: Yes Female Reproductive History Menstrual control method: condoms History History 2 Para 1 Hx # Term Pregnancies 1 Multiple births 0 Hx # Pregnancies 0 Ectopic pregnancies 0 AB induced 0 Hx Number of Living Children 1 AB spontaneous 0 Past Pregnancies Del. Date GA/Weeks # Outcome Route Wgt Sex Labor Lgth Anesthes ia Location Prov Complic 03/05/18 39 No Successful vaginal 8 lb 4 oz Male regional Inocencia Frank CNM Delivery Date: 03/05/18 [place] placenta with trailing membranes, intact with 3VC. Sushma Gr Allergies and Home Medications Allergies Allergy/AdvReac Type Severity Reaction Status Date / Time tree and shrub pollen Allergy Severe asthma Verified 10/01/20 10:18 attack Home Medications Medication Instructions Recorded Confirmed Type prenat.vits,april,sxu-fisl-mtrhp 1 tab PO DAILY 03/27/20 10/01/20 History pyridoxine (vitamin B6) 25 mg 25 mg PO DAILY 03/27/20 10/01/20 History tablet ondansetron HCl 4 mg tablet 4 mg PO Q8H PRN #60 tab 06/11/20 10/01/20 Rx albuterol sulfate 0.63 mg/3 mL 0.63 mg INHALATION TID #75 ml 07/09/20 10/01/20 Rx solution for nebulization calcium carbonate 500 mg calcium 500 mg PO DAILY 07/16/20 10/01/20 History (1,250 mg) tablet cetirizine 10 mg tablet 10 mg PO DAILY tab 10/01/20 10/01/20 History Exam Physical Exam Vital Signs Reviewed: Yes Constitutional Constitutional: no acute distress Detailed Labor and Delivery Exam Saba Score: Cervical Points Exam 0 1 2 3 Dilation Closed 1-2cm 3-4 cm 5-6cm Effacement 0-30% 40-50% 60-70% 80% Consistency Firm Medium Soft Station -3 -2 -1,0 +1,+2 Position Posterior Mid Anterior Amniotic Membrane Status: Intact Monitor Mode: None Contraction Frequency(min): 0 Fetus A Heart Rate Baseline: 120 Monitor Accelerations: 15 X 15 Monitor Decelerations: None Variability: Moderate (6-25 BPM) Risk Assessment Risk for Shoulder Dystocia Historical/Initial OB: NEGATIVE FOR: Pelvic Abnormality, Pre- BMI>30, Previous Shoulder Dystocia or Previous Macrosomia Risk for Pre-Eclampsia Date Initiated/Initials: 12/28/17 al Yes, if one or more: NEGATIVE FOR: Hx Pre-E/Gest HTN, Chronic HTN, Multiple Gestation, Pre-gestational DM, Renal Disease, Systemic Lupus or APA Syndrome Yes, if 2 or more: POSITIVE FOR: Nulliparity; NEGATIVE FOR: Age>= 35 yrs, >10yr btwn pregnancies, BMI>30, ethinicty, Mother/Sister w/ Pre-E or Previous IUGR Risk for Post- Hemorrhage Initial: NEGATIVE FOR: Multiple Gestation, Previous PPH, Known Clotting Deficiency, Grand Multiparity or Anticoagulation Risks Reviewed Risks Reviewed Upon Admission: Yes
[2020-10-03 12:06] VITALS: BP 104/74; PULSE 104; RESP 14; TEMP 36.8
[2020-10-03 12:18] VITALS: PULSE 94; O2SAT 96
[2020-10-03 12:21] VITALS: BP 104/74; PULSE 104; TEMP 36.8
[2020-10-03] MEDS: Lactated Ringers 1,000 ML 1000 ML IV (12:39)
[2020-10-03 12:41] VITALS: TEMP 37.2
[2020-10-03] MEDS: Ondansetron 4 MG/2 ML VIAL IVP (12:41)
--- NOTE | 2020-10-03 13:50 | DSE_ITS ---
Date of service: 10/03/20 Time of Service: 13:51 DS: Diagnosis Discharge Diagnosis (1) Nausea and vomiting during : Status: Acute Discharge Plan Disposition Patient Disposition: HOME Condition: Stable Discharge Details Reason For Visit: Nausea and vomiting in Admit Date/Time: 10/03/20 11:58 Admit Provider: Anabel Benavidez Attending Provider: Anabel Benavidez Primary Care Provider: Apryl Bello [facility] Course Hospital Course: IV hydration and IV Zofran for nausea with good relief of nausea and improved sense of well being after being hydrated. NST reactive and reassuring. Home Meds and New Rx's Prescriptions: No Action calcium carbonate [Calcium 500] 500 mg calcium (1,250 mg) tablet 500 mg PO DAILY RF: 0 pyridoxine (vitamin B6) 25 mg tablet 25 mg PO DAILY RF: 0 prenat.vits,april,[id number] Tablet 1 tab PO DAILY RF: 0 cetirizine 10 mg tablet 10 mg PO DAILY RF: 0 ondansetron HCl [Zofran] 4 mg tablet 4 mg PO Q8H PRN (Reason: nausea and vomiting) Qty: 60 RF: 1 albuterol sulfate 0.63 mg/3 mL solution for nebulization 0.63 mg inhalation TID Qty: 75 RF: 3 Discharge Instructions Stand Alone Forms: Center Observation Activity:: Activity as Tolerated Equipment/Supplies:: No Equipment Needed Diet:: Normal Diet Discharge Orders Discharge Orders: Discharge Order (Routine); Ordered 10/03/20 Ordered By: Anabel Benavidez Discharge Data Discharge Date/Time-TO BE ENTERED AT DEPARTURE: 10/03/20 13:54 OB:DS Summary Contraception Discussed Contraception Discussed: No (ante patient, not applicable.ALBERTO), Status at Discharge Functional status at discharge: independent ambulation Overall status at discharge: patient is back to baseline Mental Status: mental status grossly normal Speech and Movement: speech and movement normal Mood: congruent mood Affect: normal affect Exam Physical Exam Vital signs: Temp Pulse Resp BP Pulse Ox 99.0 F 94 H 14 104/74 96 10/03/20 12:41 10/03/20 12:18 10/03/20 12:06 10/03/20 12:06 10/03/20 12:18 Vital Signs Reviewed: Yes Constitutional Constitutional: no acute distress Comments: feeling much better after IV Zofran and IV hydration.KH HEENT Exam HEENT Exam: Normal Neck Exam Neck Exam: Not Done Respiratory Exam Respiratory Exam: Normal Cardiovascular Exam Cardiovascular Exam: Normal Neurological Exam Neurological Exam: Normal Psychiatric Exam Psychiatric Exam: Normal [facility] Medical History Breast lump 02/2020. Right breast. Normal clinical breast exam. Encounter for screening for other viral diseases Marijuana use Screening examination for sexually transmitted disease Family History Mother Asthma Maternal Uncle Substance abuse Social History Smoking/Tobacco Use Status: Former Tobacco Use Smoking risk assessment performed?: Yes Drug use: Daily Substance use type: marijuana Household members: children and other [facility] Number of Children: 1 Do you feel safe at home: Yes Do you feel safe in your relationship?: Yes Female Reproductive History Menstrual control method: condoms History History 2 Para 1 Hx # Term Pregnancies 1 Multiple births 0 Hx # Pregnancies 0 Ectopic pregnancies 0 AB induced 0 Hx Number of Living Children 1 AB spontaneous 0 Past Pregnancies Del. Date GA/Weeks # Outcome Route Wgt Sex Labor Lgth Anesthes ia Location [facility] 03/05/18 39 No Successful vaginal 8 lb 4 oz Male [facility] Inocencia Frank CNM Delivery Date: 03/05/18 [place] placenta with trailing membranes, intact with 3VC. Sushma Gr DS: Data Vitals/I&O Vitals and I&O: Vital Signs Temperature 99.0 F 10/03/20 12:41 Pulse 94 H 10/03/20 12:18 Pulse Rhythm Regular 10/03/20 12:06 Respiratory Rate 14 10/03/20 12:06 Blood Pressure 104/74 10/03/20 12:06 Pulse Oximetry 96 10/03/20 12:18 Oxygen Delivery Method Room Air 10/03/20 12:06 Oxygen Flow Rate 0 10/03/20 12:06 Intake & Output 10/02/20 10/03/20 10/03/20 23:59 11:59 23:59 Weight 186 lb Other: Urine Color Yellow Light Karlie
== END 2020-10-03 13:54 | disposition home or self-care (01) ==
PROVIDERS: Admitting Provider Advanced Practice Midwife; PCP Nurse Practitioner Family; Visit Provider Advanced Practice Midwife
DX: O21.2 Late vomiting of pregnancy (principal); Z3A.30 30 weeks gestation of pregnancy; O99.323 Drug use complicating pregnancy, third trimester; J45.909 Unspecified asthma, uncomplicated; F12.90 Cannabis use, unspecified, uncomplicated; O99.513 Diseases of the respiratory system complicating pregnancy, third trimester; O99.343 Other mental disorders complicating pregnancy, third trimester; F32.9 Major depressive disorder, single episode, unspecified
CPT/HCPCS: 96360; 59025; G0378; J2405

== ENCOUNTER 2020-10-15 13:04 | Outpatient (REF) | payer MEDICAID, SELFPAY ==
[2020-10-15 13:57] LABS: *AMPHETAMINES SCREEN URINE Negative (Negative); *BARBITURATES SCREEN URINE Negative (Negative); *BENZODIAZEPINES SCREEN URINE Negative (Negative); Cannabinoids THC Negative (Negative); Cocaine Screen,Urine Negative (Negative); METHADONE URINE SCREEN Negative (Negative); OPIATES URINE SCREEN Negative (Negative)
[2020-10-15 13:58] LABS: Tricyclic Antidepressants Negative (Negative)
[2020-10-23 19:22] LABS: Buprenorphine Negative ng/mL (Cutoff: 5.0)
== END 2020-10-15 13:05 | disposition home or self-care (01) ==
LOC: LBN 13:04
PROVIDERS: PCP Nurse Practitioner Family; Visit Provider Advanced Practice Midwife
DX: Z34.93 Encounter for supervision of normal pregnancy, unspecified, third trimester (principal); Z3A.32 32 weeks gestation of pregnancy
CPT/HCPCS: 80307

== ENCOUNTER 2020-11-12 01:50 | Outpatient (CLI) | payer MEDICAID, SELFPAY ==
--- NOTE | 2020-11-12 07:30 | DI.US_ITS ---
Exam(s) US OB OSMEL WEIGHT EXAM: US OB OSMEL WEIGHT CLINICAL HISTORY: large for dates,Z34.90. TECHNIQUE: Transabdominal obstetrical ultrasound performed. COMPARISON: US US OB 2-3 TRIMESTER from 07/16/2020 FINDINGS: Transabdominal obstetrical ultrasound performed. FINDINGS: Number of fetuses: One. position: Cephalic. Placental location: Anterior. This is a grade 1 placenta. No evidence of previa. BIOMETRIC DATA: BPD: 91 mm = 36 weeks 5 days HC: 325 mm = 36 weeks 6 days AC: 327 mm = 36 weeks 4 days FL: 71 mm = 36 weeks 2 days EFW: 2972 grms 57% Composite Age: 36 weeks 4 days EDC: 12/06/2020 Heart Rate: 137BPM Amniotic fluid index: 12.9 cm. Visually, amount of fluid is within normal limits. IMPRESSION: 1. Single live intrauterine gestation as above. 2. Estimated weight is 2972gms. 3. Amniotic fluid index is 12.9 cm. Visually within normal limits. DATA REPOSITORY:
[2020-11-12 13:29] LABS: *AMPHETAMINES SCREEN URINE Negative (Negative); *BARBITURATES SCREEN URINE Negative (Negative); *BENZODIAZEPINES SCREEN URINE Negative (Negative); Cannabinoids THC Negative (Negative); Cocaine Screen,Urine Negative (Negative); METHADONE URINE SCREEN Negative (Negative); OPIATES URINE SCREEN Negative (Negative)
[2020-11-12 13:30] LABS: Tricyclic Antidepressants Negative (Negative)
[2020-11-20 14:53] LABS: Buprenorphine Negative ng/mL (Cutoff: 5.0); Norbuprenorphine Negative ng/mL (Cutoff: 2.5)
== END 2020-11-12 02:10 ==
PROVIDERS: PCP Nurse Practitioner Family; Visit Provider Advanced Practice Midwife
DX: Z34.93 Encounter for supervision of normal pregnancy, unspecified, third trimester (principal); Z3A.36 36 weeks gestation of pregnancy
CPT/HCPCS: 76816; 80307

== ENCOUNTER 2020-11-12 11:44 | Outpatient (REF) | payer MEDICAID, SELFPAY | END 2020-11-12 11:45 | disposition home or self-care (01) | LOC: LBN 11:44 | PROVIDERS: PCP Nurse Practitioner Family; Visit Provider Advanced Practice Midwife | DX: Z34.93 Encounter for supervision of normal pregnancy, unspecified, third trimester (principal); Z36.85 Encounter for antenatal screening for Streptococcus B; Z3A.36 36 weeks gestation of pregnancy | CPT/HCPCS: 87081 ==

== ENCOUNTER 2020-11-27 15:41 | Outpatient (CLI) | payer MEDICAID, SELFPAY ==
[2020-11-27 16:12] VITALS: BP 125/74; PULSE 96; TEMP 37.2
[2020-11-27 16:48] LABS: PROTEIN 29.1 mg/dL
--- NOTE | 2020-11-27 16:51 | W.OBNST ---
Date of service: 11/27/20 Time of Service: 16:51 NST Evaluation Reason for NST Reasons for Nonstress Test: GESTATIONAL HYPERTENSION Reason for NST Other: hypertension Gestational Age Gestational Age in Weeks and Days: 38 Weeks and 4Days Vital Signs Blood Pressure: 125/74 Pulse: 96 Temperature: 99.0 F NST Information Time on Monitor: 15:43 NST Interventions: PO Hydration NST Evaluation Patient States Movement: Present FHR Baseline: 125 Variability: Moderate 6-25 bpm Accelerations: 15x15 Decelerations: None NST Results: Reactive Note NST Note Note: BP normal during NST, no RUIZ or visual disturbance or epigastric pain. Baby is active. No LOF or vaginal bleeding. Is mildly dehydrated according to urine specific gravity of 1.200. Protein 30 in office dip. NST is reactive and reassuring. 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 Maloney. She prefers patient be discharged today with pre-eclampsia warning signs to return on Wednesday for NST and BP check and possible IOL if indicated. Patient is aware and will call with any concerns otherwise will return to on Wednesday at 39 weeks. ALBERTO NST Reviewed and Verified by: Anabel Benavidez
[2020-11-27 16:52] VITALS: BP 125/74; PULSE 96; TEMP 37.2
[2020-11-27 17:20] LABS: COMMENT (LAB VIEW ONLY) 87.28 mg/dL; Prot/Crea Ur Ratio 0.33
== END 2020-11-27 17:25 | disposition home or self-care (01) ==
LOC: BCD 15:46 → OBS 16:07
PROVIDERS: PCP Nurse Practitioner Family; Visit Provider Advanced Practice Midwife
DX: O13.3 Gestational [pregnancy-induced] hypertension without significant proteinuria, third trimester (principal); Z3A.38 38 weeks gestation of pregnancy; O99.283 Endocrine, nutritional and metabolic diseases complicating pregnancy, third trimester; E86.0 Dehydration
CPT/HCPCS: 59025; 82565; 84156

== ENCOUNTER 2020-11-29 09:13 | Outpatient (CLI) | payer MEDICAID, SELFPAY ==
[2020-11-29 09:17] VITALS: BP 127/83; PULSE 95; TEMP 36.9
[2020-11-29 09:40] VITALS: BP 127/83; PULSE 95
[2020-11-29 09:50] LABS: COMMENT (LAB VIEW ONLY) < 13.00 mg/dL; PROTEIN < 6.0 mg/dL
[2020-11-29 10:21] VITALS: BP 131/77; PULSE 96
[2020-11-29 10:22] LABS: Bilirubin Negative (Negative); Blood Negative (Negative); Clarity Clear (Clear); Glucose Negative (Negative); Ketones Negative (Negative); Leukocyte Esterase Negative (Negative); Nitrite Negative (Negative); Urobilinogen 0.2 EU/dL (Up TO 0.2)
--- NOTE | 2020-11-29 10:46 | W.OBNST ---
Date of service: 11/29/20 Time of Service: 10:46 NST Evaluation Reason for NST Reasons for Nonstress Test: GESTATIONAL HYPERTENSION Gestational Age Gestational Age in Weeks and Days: 38 Weeks and 6Days Test and Monitor Explained Test/Monitor Explained: Test Explained, Monitor Explained and Patient Verbalized Understanding Vital Signs Blood Pressure: 127/83 Pulse: 95 Temperature: 98.4 F NST Information Date on Monitor: 11/29/20 Time on Monitor: 09:05 Date off Monitor: 11/29/20 Time off Monitor: 09:54 Total Time on Monitor: 49 NST Interventions: PO Hydration NST Evaluation Patient States Movement: Present Variability: Marked >25 bpm Accelerations: 15x15 Decelerations: None NST Results: Reactive Note NST Note Note: BP 127/83, repeat 131/77 UA neg for protein, prot/creat ratio too low to calculate Cvx 1/thick, posterior, firm, vtx -4, intact membranes Reviewed with Dr. Maloney Pt to return to for BP/NST check on Saturday 12/02 and collect 24 hr urine over the weekend NST Reviewed and Verified by: Inocencia Frank
[2020-11-29 10:49] VITALS: BP 127/83; PULSE 95; TEMP 36.9
== END 2020-11-29 09:25 | disposition home or self-care (01) ==
LOC: BCD 09:13 → OBS 09:16
PROVIDERS: PCP Nurse Practitioner Family; Visit Provider Advanced Practice Midwife
DX: O13.3 Gestational [pregnancy-induced] hypertension without significant proteinuria, third trimester (principal); Z3A.38 38 weeks gestation of pregnancy
CPT/HCPCS: 59025; 81003; 82565; 84156

== ENCOUNTER 2020-12-02 08:03 | Outpatient (CLI) | payer MEDICAID, SELFPAY ==
[2020-12-02 09:39] VITALS: BP 118/61; PULSE 86
[2020-12-02 09:41] VITALS: BP 118/61; PULSE 74; TEMP 36.7
--- NOTE | 2020-12-02 10:24 | PDOC.NST_ITS ---
Date of service: 12/02/20 Time of Service: 10:24 NST Evaluation Reason for NST Reasons for Nonstress Test: GESTATIONAL HYPERTENSION Gestational Age Gestational Age in Weeks and Days: 39 Weeks and 2Days Test and Monitor Explained Test/Monitor Explained: Test Explained, Monitor Explained and Patient Verbalized Understanding Vital Signs Blood Pressure: 118/61 Pulse: 74 Temperature: 98.1 F NST Information Date on Monitor: 12/02/20 Time on Monitor: 09:10 Date off Monitor: 12/02/20 NST Interventions: PO Hydration and Reposition Patient NST Evaluation Patient States Movement: Present FHR Baseline: 120 Variability: Minimal <6 bpm Accelerations: 15x15 Decelerations: None NST Results: Reactive Note NST Note Note: Normotensive today, 24 hr urine for protein pending Cvx exam requested by pt, no change from last week, not in labor F/up in 2 days at [facility] PN appt NST Reviewed and Verified by: Inocencia Frank
[2020-12-02 10:25] VITALS: BP 118/61; PULSE 74; TEMP 36.7
== END 2020-12-02 10:15 | disposition home or self-care (01) ==
LOC: BCD 08:05 → OBS 09:10
PROVIDERS: PCP Nurse Practitioner Family; Visit Provider Advanced Practice Midwife
DX: O13.3 Gestational [pregnancy-induced] hypertension without significant proteinuria, third trimester (principal); Z3A.39 39 weeks gestation of pregnancy
CPT/HCPCS: 59025

== ENCOUNTER 2020-12-02 09:31 | Outpatient (REF) | payer MEDICAID, SELFPAY ==
[2020-12-02 13:30] LABS: PROTEIN 16.3 mg/dL (0.0-11.9)
[2020-12-02 13:33] LABS: TOTAL PROTEIN,URINE TIMED 407.5 mg/24hr (0.0-149.1); Total Volume 2500 ml
== END 2020-12-02 09:32 | disposition home or self-care (01) ==
LOC: LBN 09:31
PROVIDERS: PCP Nurse Practitioner Family; Referring Provider Advanced Practice Midwife; Visit Provider Advanced Practice Midwife
DX: O12.13 Gestational proteinuria, third trimester (principal); O16.3 Unspecified maternal hypertension, third trimester; Z3A.39 39 weeks gestation of pregnancy
CPT/HCPCS: 81050; 84155

== ENCOUNTER 2020-12-03 08:44 | Outpatient (CLI) | payer MEDICAID, SELFPAY ==
[2020-12-03 09:50] LABS: HCT 37.5 % (36.0-46.0); HGB 12.8 g/dL (11.2-15.7); MCH 30.3 pg (27.0-33.0); MCHC 34.1 % (32.0-36.0); MCV 88.7 fL (80-95); MPV 10.1 fL (8.0-11.0); Platelet Count 279 10^3/uL (130-400); RBC 4.23 10^6/uL (3.93-5.22); RDW 12.5 % (11.7-14.6); RDW-SD 40.6 fL; WBC 13.43 10^3/uL (4.4-10.8)
[2020-12-03 11:22] LABS: ALT 43 U/L (14-59); AST 27 U/L (15-37); Albumin 2.5 g/dL (3.4-5.0); Alkaline Phosphatase 118 U/L (46-116); Anion Gap 13.3 mmol/L (3-11); BUN 10 mg/dL (7-18); Bilirubin, Total 0.4 mg/dL (0.2-1.0); CO2 21.7 mmol/L (21.0-32.0); CREATININE 0.6 mg/dL (0.55-1.02); Calcium 8.9 mg/dL (8.5-10.1); Chloride 106 mmol/L (98-107); Glucose 95 mg/dL (74-106); Potassium 4.2 mmol/L (3.5-5.1); Sodium 141 mmol/L (136-145); Total Protein 6.5 g/dL (6.4-8.2); Uric Acid 5.5 mg/dL (2.6-6.0)
== END 2020-12-03 08:45 | disposition home or self-care (01) ==
LOC: LBO 08:47
PROVIDERS: PCP Nurse Practitioner Family; Visit Provider Advanced Practice Midwife
DX: O12.13 Gestational proteinuria, third trimester (principal); Z3A.39 39 weeks gestation of pregnancy
CPT/HCPCS: 36415; 80053; 85027; 84550

== ENCOUNTER 2020-12-04 10:00 | Inpatient (IN) | payer MEDICAID, SELFPAY ==
[2020-12-04] VITALS (31 sets, daily range): BP systolic 105–131; BP diastolic 58–83; PULSE 76–101; RESP 18; TEMP 36.8–36.9; O2SAT 98–100; BMI 35.4
--- NOTE | 2020-12-04 11:21 | HPE_ITS ---
Date of service: 12/04/20 Time of Service: : Assessment and Plan Assessment and plan (1) Proteinuria affecting in third trimester: Status: Acute Assessment and plan: preeclampsia labs on admission. Dr. Villatoro notified of admission. (2) Elective induction of labor planned: Status: Acute Assessment and plan: Admit to Center. Comfort measures. Covid- 19 test. Will begin cervical ripening with misoprostol 50 mcg PV every 4 hours. Anticipate . OB-HPI Labor/Delivery History of Present Illness Reason for Visit: Induction for Pre-Eclampsia Chief Complaint: Scheduled Induction of Labor (without severe features) Indication for Induction: PreEclampsia. EVIE Calculator Estimated Delivery Date Method Current WG Current Estimate 12/07/20 LMP (Certain) 39w 4d Other Estimates 12/07/20 Ultrasound #1 39w 4d History of Present Expected Delivery Route/Plan - CNM FOB/ - Alon Elizabeth (2nd child together) BB no circ- Shree GBS negative Varicella Non-Immune, Rubella Equivocal. Plan MMR & Varicella vaccines FOB will be support person for and also maybe [id number] Lori (vaccinated) too. Specific Issues/Plan 1. Hx asthma, Hx depression. Declines referral to [facility]. 2. Declines genetic & Quad screen testing, form signed 3. Daily MJ user, counseled, discussed UDS @ 28 wks and possible need for POSC 3a. 28 & 36 wk UDS are both negative- stopped using. 4. Varicella non-immune - offer vaccine post , discuss with Fiona 07/16/20 5. Rubella Immunty is equivocal, offer MMR , discussed with Fiona 07/16/20. 6. Pt and FOB have no desire to be COVID vaccinated [facility] Medical History (Updated 12/04/20 @ 12:03 by Anabel Reynolds CNM) Breast lump 02/2020. Right breast. Normal clinical breast exam. Encounter for screening for other viral diseases Marijuana use Screening examination for sexually transmitted disease Family History Mother Asthma Maternal Uncle Substance abuse Social History Smoking/Tobacco Use Status: Former Tobacco Use Tobacco: How many years used: 1 Smoking risk assessment performed?: Yes Drug use: Daily Substance use type: marijuana Household members: children and other Details: S-[employer]. Number of Children: 1 Do you feel safe at home: Yes Do you feel safe in your relationship?: Yes Female Reproductive History Menstrual control method: condoms History History 2 Para 1 Hx # Term Pregnancies 1 Multiple births 0 Hx # Pregnancies 0 Ectopic pregnancies 0 AB induced 0 Hx Number of Living Children 1 AB spontaneous 0 Past Pregnancies Del. Date GA/Weeks # Outcome Route Wgt Sex Labor Lgth Anesthes ia Location Prov Complic 03/05/18 39 No Successful vaginal 8 lb 4 oz Male regional Inocencia Frank CNM Delivery Date: 03/05/18 [place] placenta with trailing membranes, intact with 3VC. Sushma Gr Allergies and Home Medications Allergies Allergy/AdvReac Type Severity Reaction Status Date / Time tree and shrub pollen Allergy Severe asthma Verified 11/27/20 15:26 attack Home Medications Medication Instructions Recorded Confirmed Type prenat.vits,april,fbc-wuel-eorfe 1 tab PO DAILY 03/27/20 11/27/20 History pyridoxine (vitamin B6) 25 mg 25 mg PO DAILY 03/27/20 11/27/20 History tablet ondansetron HCl 4 mg tablet 4 mg PO Q8H PRN #60 tab 06/11/20 11/27/20 Rx albuterol sulfate 0.63 mg/3 mL 0.63 mg INHALATION TID #75 ml 07/09/20 11/27/20 Rx solution for nebulization calcium carbonate 500 mg calcium 500 mg PO DAILY 07/16/20 11/27/20 History (1,250 mg) tablet cetirizine 10 mg tablet 10 mg PO DAILY tab 10/01/20 11/27/20 History pantoprazole 40 mg tablet,delayed 40 mg PO DAILY #90 tab 10/29/20 11/27/20 Rx release magnesium 250 mg tablet 250 mg PO DAILY #30 tab 10/30/20 11/27/20 Rx Exam Physical Exam Vital Signs Reviewed: Yes Constitutional Constitutional: no acute distress Detailed Labor and Delivery Exam Dilation: 1 Effacement (%): 50 station: -3 Cervix position: posterior Consistency: soft Saba Score: Cervical Points Exam 0 1 2 3 Dilation Closed 1-2cm 3-4 cm 5-6cm Effacement 0-30% 40-50% 60-70% 80% Consistency Firm Medium Soft Station -3 -2 -1,0 +1,+2 Position Posterior Mid Anterior Amniotic Membrane Status: Intact Contraction Frequency(min): occasional Contraction Intensity: Mild Fetus A Heart Rate Baseline: 130 Monitor Accelerations: 15 X 15 Monitor Decelerations: None Variability: Moderate (6-25 BPM) Presentation: Vertex Categories: Category I Est. Weight: 7 lb Respiratory Exam Respiratory Exam: Normal Cardiovascular Exam Cardiovascular Exam: Normal Abdominal Exam Abdominal Exam: Normal Exam Exam: Normal Extremities Exam Extremities Exam: Normal Skin Exam Skin Exam: Normal Psychiatric Exam Psychiatric Exam: Normal Risk Assessment Risk for Shoulder Dystocia Historical/Initial OB: NEGATIVE FOR: Pelvic Abnormality, Pre- BMI>30, Previous Shoulder Dystocia or Previous Macrosomia 40 Weeks: NEGATIVE FOR: EFW> 4500 gms, Maternal Weight Gain >40lb or Post Dates Increased Risk?: No Risk for Pre-Eclampsia Yes, if one or more: NEGATIVE FOR: Hx Pre-E/Gest HTN, Chronic HTN, Multiple Gestation, Pre-gestational DM, Renal Disease, Systemic Lupus or APA Syndrome Yes, if 2 or more: NEGATIVE FOR: Nulliparity, Age>= 35 yrs, >10yr btwn pregnancies, BMI>30, ethinicty, Mother/Sister w/ Pre-E or Previous IUGR Risk for Post- Hemorrhage Initial: NEGATIVE FOR: Multiple Gestation, Previous PPH, Known Clotting Deficiency, Grand Multiparity or Anticoagulation At Risk?: No Risks Reviewed Risks Reviewed Upon Admission: Yes
[2020-12-04 11:40] LABS: HCT 36.4 % (36.0-46.0); HGB 12.1 g/dL (11.2-15.7); MCH 29.4 pg (27.0-33.0); MCHC 33.2 % (32.0-36.0); MCV 88.3 fL (80-95); MPV 10.2 fL (8.0-11.0); Platelet Count 264 10^3/uL (130-400); RBC 4.12 10^6/uL (3.93-5.22); RDW 12.5 % (11.7-14.6); RDW-SD 40.3 fL; WBC 12.61 10^3/uL (4.4-10.8)
[2020-12-04 11:55] LABS: ALT 41 U/L (14-59); AST 27 U/L (15-37); Albumin 2.5 g/dL (3.4-5.0); Alkaline Phosphatase 113 U/L (46-116); Anion Gap 11.2 mmol/L (3-11); BUN 9 mg/dL (7-18); Bilirubin, Total 0.4 mg/dL (0.2-1.0); CO2 22.8 mmol/L (21.0-32.0); CREATININE 0.6 mg/dL (0.55-1.02); Calcium 8.9 mg/dL (8.5-10.1); Chloride 103 mmol/L (98-107); Glucose 118 mg/dL (74-106); Potassium 3.8 mmol/L (3.5-5.1); Sodium 137 mmol/L (136-145); Total Protein 6.8 g/dL (6.4-8.2); Uric Acid 5.8 mg/dL (2.6-6.0)
[2020-12-04] MEDS: miSOPROStol 25 MCG TAB 50 MCG VG ×2 (11:55→16:33)
[2020-12-04 11:57] LABS: COMMENT (LAB VIEW ONLY) 31.17 mg/dL; PROTEIN 8.3 mg/dL; Prot/Crea Ur Ratio 0.26
[2020-12-04 12:38] LABS: Source Nasal/Nares
[2020-12-04 15:23] LABS: COVID-19 PCR Negative (Negative)
[2020-12-04] MEDS: Normal Saline Flush 10 ML SYR IVP (17:50)
--- NOTE | 2020-12-04 17:54 | PGE_ITS ---
Date of service: 12/04/20 Time of Service: 17:54 Informed Consent Informed Consent: Induction of Labor Contractions Monitor Mode: External Contraction Frequency(min): every 2-3 Contraction Duration(sec): 50-60 Intensity: Mild/Moderate Fetus A Monitor: External (US) Heart Rate Baseline: 130 Presentation: Cephalic Variability: Moderate (6-25 BPM) Categories: Category I FHR Rhythm: Regular Characteristics: Normal Accelerations: 15 X 15 Decelerations: None Amniotic Membrane Status: Intact Assessment and Plan Assessment and plan (1) Elective induction of labor planned: Status: Acute Assessment and plan: Continue to assess labor pattern. Fiona requests epidural analgesia when appropriate. Will start I.V. in anticipation of epidural analgesia. Anticipate . Objective Abnormal lab results 12/04/20 12/04/20 Range/Units 11:20 11:20 WBC 12.61 H (4.4-10.8) 10^3/uL Anion Gap 11.2 H (3-11) mmol/L Glucose 118 H (74-106) mg/dL Albumin 2.5 L (3.4-5.0) g/dL Temp Pulse Resp BP 98.4 F 77 18 130/78 12/04/20 11:35 12/04/20 16:39 12/04/20 11:35 12/04/20 16:39 Laboratory Results WBC 12.61 10^3/uL (4.4-10.8) H 12/04/20 11:20 RBC 4.12 10^6/uL (3.93-5.22) 12/04/20 11:20 Hgb 12.1 g/dL (11.2-15.7) 12/04/20 11:20 Hct 36.4 % (36.0-46.0) 12/04/20 11:20 MCV 88.3 fL (80-95) 12/04/20 11:20 MCH 29.4 pg (27.0-33.0) 12/04/20 11:20 MCHC 33.2 % (32.0-36.0) 12/04/20 11:20 RDW 12.5 % (11.7-14.6) 12/04/20 11:20 Plt Count 264 10^3/uL (130-400) 12/04/20 11:20 MPV 10.2 fL (8.0-11.0) 12/04/20 11:20 Sodium 137 mmol/L (136-145) 12/04/20 11:20 Potassium 3.8 mmol/L (3.5-5.1) 12/04/20 11:20 Chloride 103 mmol/L (98-107) 12/04/20 11:20 Carbon Dioxide 22.8 mmol/L (21.0-32.0) 12/04/20 11:20 Anion Gap 11.2 mmol/L (3-11) H 12/04/20 11:20 BUN 9 mg/dL (7-18) 12/04/20 11:20 Creatinine 0.6 mg/dL (0.55-1.02) 12/04/20 11:20 Estimated GFR/1.73 m2 >= 60.00 (mL/min/1.73m2) 12/04/20 11:20 Glucose 118 mg/dL (74-106) H 12/04/20 11:20 Uric Acid 5.8 mg/dL (2.6-6.0) 12/04/20 11:20 Calcium 8.9 mg/dL (8.5-10.1) 12/04/20 11:20 Total Bilirubin 0.4 mg/dL (0.2-1.0) 12/04/20 11:20 AST 27 U/L (15-37) 12/04/20 11:20 ALT 41 U/L (14-59) 12/04/20 11:20 Alkaline Phosphatase 113 U/L (46-116) 12/04/20 11:20 Total Protein 6.8 g/dL (6.4-8.2) 12/04/20 11:20 Albumin 2.5 g/dL (3.4-5.0) L 12/04/20 11:20 Ur Random Creatinine 31.17 mg/dL 12/04/20 10:15 U Random Total Protein 8.3 mg/dL 12/04/20 10:15 U [place] Prot/Creat Ratio 0.26 12/04/20 10:15 COVID-19 Source Nasal/Nares 12/04/20 11:15 SARS-CoV-2 (PCR) Negative (Negative) 12/04/20 11:15 Patient ABO/Rh A Positive 12/04/20 11:20 Antibody Screen NEGATIVE 12/04/20 11:20 Subjective Patient Reports: No new Complaints Interval history since last seen: Admission preeclampsia panel WNL with protein/creatinene ratio 0.26. After first dose of misoprostol, Fiona reported tightening. Regular contraction pattern noted. 2nd dose of misoprostol 50 MCG given. Results Hemoglobin/Hematocrit: Hgb 12.1 g/dL (11.2-15.7) 12/04/20 11:20 Hct 36.4 % (36.0-46.0) 12/04/20 11:20 Abnormal Lab Findings: Abnormal Labs 12/04/20 12/04/20 11:20 11:20 WBC 12.61 H Anion Gap 11.2 H Glucose 118 H Albumin 2.5 L
[2020-12-04] MEDS: Lactated Ringers 1,000 ML 200 ML IV (22:23)
--- NOTE | 2020-12-04 22:39 | PGE_ITS ---
Date of service: 12/04/20 Time of Service: 22:39 Informed Consent Informed Consent: Induction of Labor Pelvic Exam Dilation: 2 Effacement (%): 50 station: 0 Cervix Position: posterior Consistency: soft Vaginal Exam Presentation: Cephalic Pooling: Negative Contractions Monitor Mode: External Contraction Frequency(min): every 2 minutes Contraction Duration(sec): 60 Intensity: Moderate/Strong Fetus A Monitor: External (US) Heart Rate Baseline: 130 Presentation: Cephalic Variability: Moderate (6-25 BPM) Categories: Category I FHR Rhythm: Regular Accelerations: 15 X 15 Decelerations: None Assessment and Plan Assessment and plan (1) Elective induction of labor planned: Status: Acute Assessment and plan: Coping well with contractions. SVE performed and cervix 2 cms. Category 1 tracing. Prepare for epidural analgesia. Anticipate Objective Abnormal lab results 12/04/20 12/04/20 Range/Units 11:20 11:20 WBC 12.61 H (4.4-10.8) 10^3/uL Anion Gap 11.2 H (3-11) mmol/L Glucose 118 H (74-106) mg/dL Albumin 2.5 L (3.4-5.0) g/dL Temp Pulse Resp BP Pulse Ox 98.3 F 95 H 18 123/73 98 12/04/20 20:05 12/04/20 21:46 12/04/20 20:05 12/04/20 21:46 12/04/20 21:46 Laboratory Results WBC 12.61 10^3/uL (4.4-10.8) H 12/04/20 11:20 RBC 4.12 10^6/uL (3.93-5.22) 12/04/20 11:20 Hgb 12.1 g/dL (11.2-15.7) 12/04/20 11:20 Hct 36.4 % (36.0-46.0) 12/04/20 11:20 MCV 88.3 fL (80-95) 12/04/20 11:20 MCH 29.4 pg (27.0-33.0) 12/04/20 11:20 MCHC 33.2 % (32.0-36.0) 12/04/20 11:20 RDW 12.5 % (11.7-14.6) 12/04/20 11:20 Plt Count 264 10^3/uL (130-400) 12/04/20 11:20 MPV 10.2 fL (8.0-11.0) 12/04/20 11:20 Sodium 137 mmol/L (136-145) 12/04/20 11:20 Potassium 3.8 mmol/L (3.5-5.1) 12/04/20 11:20 Chloride 103 mmol/L (98-107) 12/04/20 11:20 Carbon Dioxide 22.8 mmol/L (21.0-32.0) 12/04/20 11:20 Anion Gap 11.2 mmol/L (3-11) H 12/04/20 11:20 BUN 9 mg/dL (7-18) 12/04/20 11:20 Creatinine 0.6 mg/dL (0.55-1.02) 12/04/20 11:20 Estimated GFR/1.73 m2 >= 60.00 (mL/min/1.73m2) 12/04/20 11:20 Glucose 118 mg/dL (74-106) H 12/04/20 11:20 Uric Acid 5.8 mg/dL (2.6-6.0) 12/04/20 11:20 Calcium 8.9 mg/dL (8.5-10.1) 12/04/20 11:20 Total Bilirubin 0.4 mg/dL (0.2-1.0) 12/04/20 11:20 AST 27 U/L (15-37) 12/04/20 11:20 ALT 41 U/L (14-59) 12/04/20 11:20 Alkaline Phosphatase 113 U/L (46-116) 12/04/20 11:20 Total Protein 6.8 g/dL (6.4-8.2) 12/04/20 11:20 Albumin 2.5 g/dL (3.4-5.0) L 12/04/20 11:20 Ur Random Creatinine 31.17 mg/dL 12/04/20 10:15 U Random Total Protein 8.3 mg/dL 12/04/20 10:15 U [place] Prot/Creat Ratio 0.26 12/04/20 10:15 COVID-19 Source Nasal/Nares 12/04/20 11:15 SARS-CoV-2 (PCR) Negative (Negative) 12/04/20 11:15 Patient ABO/Rh A Positive 12/04/20 11:20 Antibody Screen NEGATIVE 12/04/20 11:20 Subjective Patient Reports: New Complaints Interval history since last seen: Fiona is complaining of strong, painful contractions. The next dose of misoprostol was held due to frequent contractions. She requests an epidural for pain relief. B.P. 123/73 Results Hemoglobin/Hematocrit: Hgb 12.1 g/dL (11.2-15.7) 12/04/20 11:20 Hct 36.4 % (36.0-46.0) 12/04/20 11:20 Abnormal Lab Findings: Abnormal Labs 12/04/20 12/04/20 11:20 11:20 WBC 12.61 H Anion Gap 11.2 H Glucose 118 H Albumin 2.5 L
--- NOTE | 2020-12-04 22:42 | ANES.PREOP_ITS ---
General Info Date of Service Date Performed: 12/04/20 Height: 5 ft 3 in Weight: 90.718 kg Body Mass Index (BMI): 35.4 Meds Allergies and Home Medications Allergies Allergy/AdvReac Type Severity Reaction Status Date / Time tree and shrub pollen Allergy Severe asthma Verified 12/04/20 15:09 attack Home Medication Medication Instructions Recorded prenat.vits,april,[id number] 1 tab PO DAILY 03/27/20 pyridoxine (vitamin B6) 25 mg 25 mg PO DAILY 03/27/20 tablet ondansetron HCl 4 mg tablet 4 mg PO Q8H PRN #60 tab 06/11/20 calcium carbonate 500 mg calcium 500 mg PO DAILY 07/16/20 (1,250 mg) tablet cetirizine 10 mg tablet 10 mg PO DAILY tab 10/01/20 pantoprazole 40 mg tablet,delayed 40 mg PO DAILY #90 tab 10/29/20 release magnesium 250 mg tablet 250 mg PO DAILY #30 tab 10/30/20 albuterol sulfate 0.63 mg INHALATION TID PRN 12/04/20 Current Visit Medications: Current Medications Generic Name Dose Route Start Last Admin Trade Name Freq PRN Reason Stop Dose Admin Fentanyl/Ropivacaine 200 ml 12/04/20 22:30 Fentanyl/Ropivacaine 2 Mcg/Ml And 0.1% 200 Ml [place]ette EP DIRECTED RENE Ringer's Solution 1,000 mls @ 200 mls/hr 12/04/20 10:45 12/04/20 22:23 IV 200 mls/hr INFUSION RENE Administration Sodium Chloride 500 mls @ 0 mls/hr 12/04/20 11:37 Saline 500ml Bag IV PRN PRN As Directed Ringer's Solution 500 mls @ 500 mls/hr 12/04/20 22:23 IV 12/04/20 23:22 BOLUS ONE IV Miscellaneous Supplies 1 each 12/04/20 11:45 Iv Access IV DIRECTED RENE Misoprostol 50 mcg 12/04/20 12:00 12/04/20 16:33 Misoprostol 25 Mcg Tab VG 50 mcg Q4H RENE Administration Sodium Chloride 0 ml 12/04/20 11:37 12/04/20 17:50 Normal Saline Flush 10 Ml Syr IVP 10 ml PRN PRN Administration Terbutaline Sulfate 0.25 mg 12/04/20 10:33 Terbutaline 1 Mg/Ml Vial SC PRN PRN Zolpidem Tartrate 10 mg 12/04/20 21:00 Zolpidem 5 Mg Tab PO 12/05/20 06:00 [address] [facility] PFS Active Problems Active Problems: Problem Status Onset Code Elective induction of labor planned Proteinuria affecting in third trimester O12.13 Elevated blood pressure affecting in third trimester, antepartum O16.3 Nausea and vomiting during O21.9 Z34.90 Encounter for screening laboratory testing for COVID-19 virus Z20.822 Dysuria R30.0 Rubella non-immune status, antepartum O99.891, Z28.3 Maternal varicella, non-immune O09.899, Z28.3 Asthma action plan declined J45.909 Marijuana use F12.90 Nausea and vomiting R11.2 Medical History Medical History (Updated 12/04/20 @ 12:03 by Anabel Reynolds CNM) Breast lump 02/2020. Right breast. Normal clinical breast exam. Encounter for screening for other viral diseases Marijuana use Screening examination for sexually transmitted disease Tobacco Smoking/Tobacco Use Status: Former Tobacco Use Tobacco: How many years used: 1 Substance Use Substance use: Daily Substance use type: marijuana Prental History History 2 Para 1 Hx # Term Pregnancies 1 Multiple births 0 Hx # Pregnancies 0 Ectopic pregnancies 0 AB induced 0 Hx Number of Living Children 1 AB spontaneous 0 Past Pregnancies Del. Date GA/Weeks # Outcome Route Wgt Sex Labor Lgth Anesthes ia Location Prov [facility] 03/05/18 39 No Successful vaginal 3742.137 g Male [facility] Inocencia Frank CNM Delivery Date: 03/05/18 [place] placenta with trailing membranes, intact with 3VC. Sushma Gr Vital Signs and Lab Results Vital Signs Most Recent Vital Signs in EMR: Most Recent Vital Signs Temp Pulse Resp BP Pulse Ox 36.8 C 95 H 18 123/73 98 12/04/20 20:05 12/04/20 21:46 12/04/20 20:05 12/04/20 21:46 12/04/20 21:46 Lab Results Result Diagrams: 12/04/20 11:20 12/04/20 11:20 Blood Type / Crossmatch: Patient ABO/Rh A Positive 12/04/20 11:20 12/04/20 Antibody Screen NEGATIVE 12/04/20 11:20 12/04/20 Complete Blood Count: White Blood Count 12.61 10^3/uL (4.4-10.8) H 12/04/20 11:20 12/04/20 Red Blood Count 4.12 10^6/uL (3.93-5.22) 12/04/20 11:20 12/04/20 Hemoglobin 12.1 g/dL (11.2-15.7) 12/04/20 11:12/04/20 Hematocrit 36.4 % (36.0-46.0) 12/04/20 11:20 12/04/20 Platelet Count 264 10^3/uL (130-400) 12/04/20 11:12/04/20 Complete Metabolic Panel: Sodium Level 137 mmol/L (136-145) 12/04/20 11:20 12/04/20 Potassium Level 3.8 mmol/L (3.5-5.1) 12/04/20 11:20 12/04/20 Chloride Level 103 mmol/L (98-107) 12/04/20 11:12/04/20 Carbon Dioxide Level 22.8 mmol/L (21.0-32.0) 12/04/20 11:20 12/04/20 Blood Urea Nitrogen 9 mg/dL (7-18) 12/04/20 11:20 12/04/20 Creatinine 0.6 mg/dL (0.55-1.02) 12/04/20 11:20 12/04/20 Estimated GFR/1.73 m2 >= 60.00 (mL/min/1.73m2) 12/04/20 11:20 12/04/20 Calcium Level 8.9 mg/dL (8.5-10.1) 12/04/20 11:20 12/04/20 Albumin 2.5 g/dL (3.4-5.0) L 12/04/20 11:12/04/20 Glucose Level 118 mg/dL (74-106) H 12/04/20 11:20 12/04/20 Liver Function Panel: Alanine Aminotransferase (ALT/SGPT) 41 U/L (14-59) 12/04/20 11:20 12/04/20 Aspartate Amino Transf (AST/SGOT) 27 U/L (15-37) 12/04/20 11:20 12/04/20 Coagulation Panel: No Data to Display Cardiac Panel: No Data to Display Arterial Blood Gas: No Data to Display Venous Blood Gas: No Data to Display Pancreas Panel: No Data to Display Thyroid Panel: No Data to Display Infectious Disease: Coronavirus (COVID-19)(PCR) Negative (Negative) 12/04/20 11:15 12/04/20 Coronavirus 2019 Source Nasal/Nares 12/04/20 11:15 12/04/20 Blood Cultures: No Data to Display Toxicology Panel: Urine Amphetamines Screen Negative (Negative) 11/12/20 09:30 11/12/20 Urine Benzodiazepines Screen Negative (Negative) 11/12/20 09:30 11/12/20 Urine Barbiturates Screen Negative (Negative) 11/12/20 09:30 11/12/20 Urine Cocaine Screen Negative (Negative) 11/12/20 09:30 11/12/20 Urine Methadone Screen Negative (Negative) 11/12/20 09:30 11/12/20 Urine Opiates Screen Negative (Negative) 11/12/20 09:30 11/12/20 Ur Tricyclic Antidepressants Screen Negative (Negative) 11/12/20 09:30 11/12/20 Ur Tetrahydrocannabinol (THC) Scrn Negative (Negative) 11/12/20 09:30 11/12/20 Panel: No Data to Display Anesthesia Assessment and Plan Anesthesia History Personal History: No History of Anesthesia Complications Family History: No Family History of Anesthesia Complications Exercise Tolerance Exercise Tolerance: Metabolic Equivalents>4 Pertinent Negatives Pertinent Negatives: No Major Cardiovascular Symptoms or Complaints, No Major Pulmonary Symptoms or Complaints and No History of CVA/TIA Cardiac & Pulmonary Exam Cardiac Exam: Normal S1/S2 Heart Sounds Pulmonary Exam: Clear Bilateral Breath Sounds Cardiac and Pulmonary Comment:: Albuteril Thomas only with URI Airway Exam Known Difficult Airway: No Mallampati Class: 2 Mouth Opening: Normal (> 3cm) Thyromental Distance: Greater than 3 cm Neck Range of Motion: Full ROM Neck Circumference: Normal Teeth Condition: Normal Dentition ASA Classification ASA Score: ASA 2 Emergency Case?: No NPO Status NPO Status: Full Stomach () Status Status: Confirmed Anesthesia Plan Resuscitation Status: Full Code Anesthesia Technique: Epidural Anesthesia Airway Planned: Natural Airway Pain Management: Epidural Monitors Used: Standard Monitors
[2020-12-04] MEDS: FentaNYL/ROPIvacaine 2 mcg/ml and 0.1% 200 ML CADD Cassette EP (23:19)
--- NOTE | 2020-12-04 23:21 | W.ANESNEU ---
Epidural/Spinal Catheter Date Performed: 12/04/20 Procedure Start: 22:55 Procedure Stop: 23:21 Requesting Provider: Anabel Reynolds Procedure Location: Obstetrics Reason Performed: Labor Epidural Standard Monitors Applied: ECG, Blood Pressure, SpO2 and See EMR for corresponding vital signs Patient Position: Sitting Sedation Given (Indicate Dose Given): No Sedation given Patient Mental Status: Awake Sterility: Hand Hygiene, Surgical Cap, Surgical Mask, Sterile Gloves, Sterile Drape/Sheet and Chlorhexidine Procedure Location: L2-L3 Interspace Epidural Needle: Tuohy 18 Gauge Needle Length: 3.5 Inch Needle Approach: Midline Epidural Procedure: Skin Prepped, Sterile Drape Placed, 1% Lidocaine to skin and subcutaneous tissue with 25G needle, Tuohy Needle placed, LESTER to Saline Used, Epidural Catheter Placed, Negative Heme, Negative CSF Flow and Tuohy Needle Removed Catheter Placed?: Catheter Placed Test Dose (Indicate Dose Given): 3ml 1.5% Lidocaine with 1:200K Epinephrine Given and Negative Test Dose Loss of Resistance Depth (cm): 6 Catheter depth at skin (cm): 12 Dressing: [place] Dressing Placed, Chlorhexidine Dressing and Dressing reinforced with Tape Epidural Provider Bolus (Indicate Dose Given): Total bolus dose given in 3-5 ml divided doses and Total Bupivacaine 0.25% Given (ml) Dose:: 6 Additives (Indicate Dose Given ): Fentanyl PF Dose:: 100 mcg Infusion Medication: Medication Infusion Began Medication Infusion: Ropivacaine 0.1% with Fentanyl 2mcg/ml Maintenance Infusion Rate (ml/hour): 10 PCEA Bolus Dose (ml): 5 Post Procedure Pain score (0-10): 4 Block Level: T6 Paresthesia: None Ultrasound: Not Used Number of Attempts (See previous attempts in note section): 1 Procedure Tolerated: No Complications and Patient tolerated well Procedure Outcome: Successful Procedure Comment:: Active labor, second baby, had epidural with previous delivery. Pain level pre-procedure 9/10. Post procedure 4/10 and tolerable. Bilateral legs tingly, but equal strength. Infusion initiated at 2319. Performed By: Lidia Lewis
[2020-12-05] VITALS (128 sets, daily range): BP systolic 99–135; BP diastolic 52–87; PULSE 67–208; RESP 16–20; TEMP 36.5–36.9; O2SAT 96–100
[2020-12-05] MEDS: Oxytocin/Normal Saline 30 UNIT/500 ML BAG 2 UNITS IV (00:19)
[2020-12-05] MEDS: Lactated Ringers 1,000 ML 200 ML IV ×2 (00:37→03:43)
--- NOTE | 2020-12-05 04:35 | PGE_ITS ---
Date of service: 12/05/20 Time of Service: 04:35 Informed Consent Informed Consent: Induction of Labor Pelvic Exam Dilation: 7 Effacement (%): 80 station: +1 Cervix Position: mid Consistency: soft Vaginal Exam Presentation: Cephalic Pooling: Positive Comments: SROM clear fluid Contractions Monitor Mode: External Contraction Frequency(min): every 2 min Contraction Duration(sec): 60 Intensity: Strong Fetus A Monitor: External (US) Heart Rate Baseline: 130 Presentation: Vertex Variability: Moderate (6-25 BPM) Categories: Category I FHR Rhythm: Regular Accelerations: 15 X 15 Decelerations: Variable (one variable decelleration while sitting on the bedpan) Amniotic Membrane Status: Ruptured Rupture Method: Spontaneous Amniotic Fluid: Clear Assessment and Plan Assessment and plan (1) Elective induction of labor planned: Status: Acute Assessment and plan: anticipate . assist with pushing. Continue to assess FHR pattern. Objective Abnormal lab results 12/04/20 12/04/20 Range/Units 11:20 11:20 WBC 12.61 H (4.4-10.8) 10^3/uL Anion Gap 11.2 H (3-11) mmol/L Glucose 118 H (74-106) mg/dL Albumin 2.5 L (3.4-5.0) g/dL Temp Pulse Resp BP Pulse Ox 98.5 F 94 H 18 132/71 99 12/05/20 00:02 12/05/20 04:24 12/05/20 00:02 12/05/20 04:24 12/05/20 03:23 Laboratory Results WBC 12.61 10^3/uL (4.4-10.8) H 12/04/20 11:20 RBC 4.12 10^6/uL (3.93-5.22) 12/04/20 11:20 Hgb 12.1 g/dL (11.2-15.7) 12/04/20 11:20 Hct 36.4 % (36.0-46.0) 12/04/20 11:20 MCV 88.3 fL (80-95) 12/04/20 11:20 MCH 29.4 pg (27.0-33.0) 12/04/20 11:20 MCHC 33.2 % (32.0-36.0) 12/04/20 11:20 RDW 12.5 % (11.7-14.6) 12/04/20 11:20 Plt Count 264 10^3/uL (130-400) 12/04/20 11:20 MPV 10.2 fL (8.0-11.0) 12/04/20 11:20 Sodium 137 mmol/L (136-145) 12/04/20 11:20 Potassium 3.8 mmol/L (3.5-5.1) 12/04/20 11:20 Chloride 103 mmol/L (98-107) 12/04/20 11:20 Carbon Dioxide 22.8 mmol/L (21.0-32.0) 12/04/20 11:20 Anion Gap 11.2 mmol/L (3-11) H 12/04/20 11:20 BUN 9 mg/dL (7-18) 12/04/20 11:20 Creatinine 0.6 mg/dL (0.55-1.02) 12/04/20 11:20 Estimated GFR/1.73 m2 >= 60.00 (mL/min/1.73m2) 12/04/20 11:20 Glucose 118 mg/dL (74-106) H 12/04/20 11:20 Uric Acid 5.8 mg/dL (2.6-6.0) 12/04/20 11:20 Calcium 8.9 mg/dL (8.5-10.1) 12/04/20 11:20 Total Bilirubin 0.4 mg/dL (0.2-1.0) 12/04/20 11:20 AST 27 U/L (15-37) 12/04/20 11:20 ALT 41 U/L (14-59) 12/04/20 11:20 Alkaline Phosphatase 113 U/L (46-116) 12/04/20 11:20 Total Protein 6.8 g/dL (6.4-8.2) 12/04/20 11:20 Albumin 2.5 g/dL (3.4-5.0) L 12/04/20 11:20 Ur Random Creatinine 31.17 mg/dL 12/04/20 10:15 U Random Total Protein 8.3 mg/dL 12/04/20 10:15 U [place] Prot/Creat Ratio 0.26 12/04/20 10:15 COVID-19 Source Nasal/Nares 12/04/20 11:15 SARS-CoV-2 (PCR) Negative (Negative) 12/04/20 11:15 Patient ABO/Rh A Positive 12/04/20 11:20 Antibody Screen NEGATIVE 12/04/20 11:20 Subjective Patient Reports: New Complaints Interval history since last seen: pressure and urge to push Results Hemoglobin/Hematocrit: Hgb 12.1 g/dL (11.2-15.7) 12/04/20 11:20 Hct 36.4 % (36.0-46.0) 12/04/20 11:20 Abnormal Lab Findings: Abnormal Labs 12/04/20 12/04/20 11:20 11:20 WBC 12.61 H Anion Gap 11.2 H Glucose 118 H Albumin 2.5 L
--- NOTE | 2020-12-05 06:11 | OBVDS_ITS ---
Date of service: 12/05/20 Time of Service: 06:12 OB Labor/ Delivery Information Baby A Delivery Delivery Method: Spontaneaous Presentation: Cephalic Vertex Position: Right Occipital Anterior Cord Description-Baby A: 3 Vessels Amniotic Fluid: Clear Estimated Blood Loss: 250 Delivery Outcome: Liveborn Transferred: Remains with Mother Note: FHTs 120-130 during first stage of labor. FHTs 120s in second stage with variable decellerations associated with contractions down to 90-110. Progressed to full dilation and began pushing. Second stage huddle was done. oxygen was administered via mask for terminal bradycardia. Spontaneous delivery of male delivered in CHARLY position. Right hand was presenting with the head. Baby was placed on mother's abdomen and dried and stimulated. Spontaneous cry. Cord was clamped and cut by the baby's father. The placenta delivered spontaneously and appears to by intact with a three vessel cord. Pitocin 30 units IV was administered after delivery of the placenta. The perineum was inspected and is intact. The baby did breastfeed. After delivery, Mother and baby and father of the baby were stable and bonding well in the delivery room and there were no complications. The baby's name is Shree. Providers Nurse Handstitching Machine Collar Feller: Anabel Reynolds Airport Control Operator: Lidia Lewis Nurse: Linda Castillo Nurse: Tresa Durbin Other: Cate Armendariz RN Labor/Delivery Information Number of Babies in Womb: 1 Steroids Given: None Reason Steroids Not Administered: N/A Group Beta Strep: Negative Antibiotics Administered: No Rubella Status: Equivocal Blood Type: A+ Varicella Immunity: Nonimmune Medication in Delivery: epidural analgesia Born En Route: No Maternal Complications: None and Abnormal Cord Length (short cord) Shoulder Dystocia: No Stages of Labor Onset of Labor Date: 12/04/20 Onset of Labor Time: 22:15 Complete Dilatation Date: 12/05/20 Complete Dilatation Time: 05:24 Labor - Stage 1 Duration: 24 hours and 0 minutes ROM Baby A: 12/05/20 ROM Baby A: 04:10 ROM Total Time- Baby A: [id number] Delivery Date-Baby A: 12/05/20 Infant Delivery Time-Baby A: 05:45 Labor Stage 2 Duration: 21 minutes Placenta Delivery Date-Baby A: 12/05/20 Placenta Delivery Time-Baby A: 05:52 Labor-Stage 3 Duration: 7 minutes Total Length of Labor-Baby A: 7 hours and 30 minutes Placenta Cultured: No Placenta Status: Delivered Baby A Gender: Male Gestational Status: Term (39-41.6 wks) Gestational Age in Weeks/Days: 39 Weeks and 5 Days Shoulder Dystocia Delivery Times Date of Delivery of Head: 12/05/20 Time of Delivery of the Head: 05:44 Head to Body Delivery Interval(minutes): 1 Verify No Fundal Pressure Applied Fundal Pressure: No Pressure Applied Arm Under Sympisis Arm Under Symphisis: Left
--- NOTE | 2020-12-05 08:09 | W.ANESPOSTOP ---
Postoperative Evaluation Date, Time and Location Date Performed: 12/05/20 Time Performed: 07:55 Patient Location: Obstetrics Vital Signs Most Recent Imported Vital Signs: Most Recent Vital Signs Temp Pulse Resp BP Pulse Ox 36.8 C 97 H 20 113/67 100 12/05/20 07:21 12/05/20 07:21 12/05/20 07:21 12/05/20 07:21 12/05/20 05:33 Pain Score Most Recent Pain Score: Most Recent Pain Score Pain Level [Lower Back] 0 12/05/20 00:02 Pain Level [Lower Abdomen] 0 12/05/20 00:02 Pain Level 0 12/04/20 11:35 Assessment Mental Status: Awake (Alert & Oriented to Patient Baseline) Airway and Respiratory Function: Patent airway with normal (patient baseline) respiratory exam Cardiovascular Function: Hemodynamically Stable Hydration Status: Adequately Hydrated Nausea & Vomiting: No Nausea or Vomiting Pain: Pt. Denies Any Pain Peripheral Nerve Block: Other (epidural infusion has not been off long and she still has a slight bit of numbness which she says is regressing, along with her itching. ) Postoperative Comments:: epidural catheter was removed, the tip is intact.
--- NOTE | 2020-12-05 09:00 | PLAC_PTH ---
PATIENT: Fiona Scruggs LOC: OBS U#:[id number] AGE/SX: 25/F ROOM: OBS.303 RE12/04/[address]: Anabel Reynolds : 1995 BED: A DIS: 12/06/2020 SPEC #: [id number] RECD: 12/05/20 12:49 STATUS: NURY REQ #: [id number] ELAINE: 12/05/20 09:[address]: Anabel Reynolds DEPT: Surgical Specimen RECD BY: Valeria Lake ENTERED: 12/05/20 12:50 SP TYPE: PLAC OTHR DR: Apryl Bello Tissues: 1 - PLACENTA (3RD TRIMESTER) Procedures: GROSS AND MICRO LEVEL 5 Comments: [id number]
[2020-12-05] MEDS: Ibuprofen 600 MG TAB PO ×3 (10:03→22:35)
[2020-12-05] MEDS: Acetaminophen 325 MG TAB 650 MG PO ×3 (10:06→20:35)
[2020-12-06] MEDS: Acetaminophen 325 MG TAB 650 MG PO ×2 (02:39→11:09)
[2020-12-06] MEDS: Ibuprofen 600 MG TAB PO (05:30)
[2020-12-06 07:59] LABS: HCT 29.8 % (36.0-46.0); MCH 29.5 pg (27.0-33.0); MCHC 33.6 % (32.0-36.0); MCV 87.9 fL (80-95); MPV 9.8 fL (8.0-11.0); Platelet Count 214 10^3/uL (130-400); RBC 3.39 10^6/uL (3.93-5.22); RDW 12.8 % (11.7-14.6); RDW-SD 40.6 fL; WBC 11.33 10^3/uL (4.4-10.8)
--- NOTE | 2020-12-06 10:53 | OBPPV_ITS ---
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 Written instructions reviewed and given Start iron supplement upon arrival at home, Rx sent (2) Rubella non-immune status, antepartum: Status: Acute (3) Maternal varicella, non-immune: Status: Acute (4) anemia: Status: Acute Subjective Subjective Patient comments: No complaints, Tolerating diet and Bowel Movement [place] baby status: Doing well, Nursing well, Rooming in and Strong Bonding Observed [place] feeding status: Exclusively breast feeding Exam Physical Exam Vital signs: Temp Pulse Resp BP Pulse Ox 97.7 F 90 18 128/73 98 12/05/20 20:47 12/05/20 20:47 12/05/20 20:47 12/05/20 20:47 12/05/20 20:47 Vital Signs Reviewed: Yes Constitutional Constitutional: no acute distress HEENT Exam HEENT Exam: Normal Neck Exam Neck Exam: Normal Breast Exam Bilateral: Breast Exam: Normal and Soft Nipple Exam: Normal and Uninjured Respiratory Exam Respiratory Exam: Normal Cardiovascular Exam Cardiovascular Exam: Normal Abdominal Exam Abdomen: Other (soft, nontender) Fundal Exam Fundus: Below Umbilicus and Firm Rectal Exam Rectal Exam: Normal Exam Perineum: Intact Extremities Exam Extremity Exam: Normal Back/Spine/Pelvis Exam Back Exam: Normal Skin Exam Skin Exam: Normal Neurological Exam Neurological Exam: Normal Psychiatric Exam Psychiatric Exam: Normal Results Hemoglobin/Hematocrit: Hgb 10.0 g/dL (11.2-15.7) L D 12/06/20 07:45 Hct 29.8 % (36.0-46.0) L 12/06/20 07:45 Abnormal Lab Findings: Abnormal Labs 12/04/20 12/04/20 12/06/20 11:20 11:20 07:45 WBC 12.61 H 11.33 H RBC 3.39 L Hgb 10.0 L D Hct 29.8 L Anion Gap 11.2 H Glucose 118 H Albumin 2.5 L
[2020-12-06 11:00] VITALS: BP 112/70; PULSE 91; RESP 16; TEMP 36.7; O2SAT 97
[2020-12-06] MEDS: Varicella Virus Vaccine (Live) 0.5 ML SC (11:40)
[2020-12-06] MEDS: Measles, Mumps, & Rubella Vaccine 0.5 ML VIAL SC (11:43)
--- NOTE | 2020-12-06 12:05 | DSE_ITS ---
Date of service: 12/06/20 Time of Service: 12:05 DS: Diagnosis Discharge Diagnosis (1) Term delivered: Status: Acute (2) Rubella non-immune status, antepartum: Status: Acute (3) Maternal varicella, non-immune: Status: Acute (4) anemia: Status: Acute Discharge Plan Disposition Patient Disposition: HOME Condition: Good Discharge Details Reason For Visit: Induction for Pre-Eclampsia Admit Date/Time: 12/04/20 10:00 Admit Provider: Anabel Reynolds Attending Provider: Anabel Reynolds Primary Care Provider: Apryl Bello Hospital Course Hospital Course: Responded to cervical ripening with onset of labor, epidural given, , nml PPD course, desires discharge on PPD#1 Home Meds and New Rx's Prescriptions: No Action prenat.vits,april,[id number] Tablet 1 tab PO DAILY RF: 0 cetirizine 10 mg tablet 10 mg PO DAILY RF: 0 magnesium 250 mg tablet 250 mg PO DAILY Qty: 30 RF: 2 ferrous sulfate 324 mg (65 mg iron) tablet,delayed release (DR/EC) 324 mg PO DAILY Qty: 30 RF: 3 albuterol sulfate 0.63 mg/3 mL solution for nebulization 0.63 mg inhalation TID PRNRF: 0 Discharge Instructions Additional Instructions: Please keep 2 and 6 week check up appointments with your tube inspector, call for any concerns or questions. Please plan for your 2nd Varicella vaccine to be given at your 6 week appointment. Stand Alone Forms: BC Instructions, NB [place] Instructions, BC Post Vaginal Deliver Activity:: Activity as Tolerated Equipment/Supplies:: No Equipment Needed Diet:: Normal Diet Discharge Orders Discharge Orders: Discharge Order (Routine); Ordered 12/06/20 Ordered By: Inocencia Frank OB:DS Summary Summary Vaginal Delivery Method: Spontaneaous Episiotomy Description: None Laceration Description: None Laceration Extension: N/A Contraception Discussed Contraception Discussed: Yes Contraceptive Plan: Not planning to use, [place] Infant Gender-Baby A: Male weight: 7 lb 14.81 oz Status at Discharge Functional status at discharge: independent ambulation Overall status at discharge: patient is progressing back to baseline Mental Status: mental status grossly normal Speech and Movement: speech and movement normal and speech clear Mood: congruent mood Affect: normal affect Exam Physical Exam Vital signs: Temp Pulse Resp BP Pulse Ox 97.7 F 90 18 128/73 98 12/05/20 20:47 12/05/20 20:47 12/05/20 20:47 12/05/20 20:47 12/05/20 20:47 Constitutional Constitutional: no acute distress HEENT Exam HEENT Exam: Normal Neck Exam Neck Exam: Normal Breast Exam Bilateral: Breast Exam: Normal and Soft Respiratory Exam Respiratory Exam: Normal Cardiovascular Exam Cardiovascular Exam: Normal Abdominal Exam Abdomen: Other (soft, nontender) Fundal Exam Fundus: Below Umbilicus and Firm Rectal Exam Rectal Exam: Normal Exam Perineum: Intact Extremities Exam Extremity Exam: Normal Back/Spine/Pelvis Exam Back Exam: Normal Skin Exam Skin Exam: Normal Neurological Exam Neurological Exam: Normal Psychiatric Exam Psychiatric Exam: Normal [facility] Medical History (Updated 12/06/20 @ 12:02 by Inocencia Frank) Breast lump 02/2020. Right breast. Normal clinical breast exam. Dysuria Elective induction of labor planned Elevated blood pressure affecting in third trimester, antepartum Encounter for screening for other viral diseases Encounter for screening laboratory testing for COVID-19 virus Marijuana use Maternal varicella, non-immune Nausea and vomiting Nausea and vomiting during Proteinuria affecting in third trimester Screening examination for sexually transmitted disease Family History Mother Asthma Maternal Uncle Substance abuse Social History Smoking/Tobacco Use Status: Former Tobacco Use Tobacco: How many years used: 1 Smoking risk assessment performed?: Yes Drug use: Daily Substance use type: marijuana Household members: children and other Details: Reuben. Number of Children: 1 Do you feel safe at home: Yes Do you feel safe in your relationship?: Yes Female Reproductive History Menstrual control method: condoms History History 2 Para 1 Hx # Term Pregnancies 1 Multiple births 0 Hx # Pregnancies 0 Ectopic pregnancies 0 AB induced 0 Hx Number of Living Children 1 AB spontaneous 0 Past Pregnancies Del. Date GA/Weeks # Outcome Route Wgt Sex Labor Lgth Anesthes ia Location Prov Complic 03/05/18 39 No Successful vaginal 8 lb 4 oz Male regional Inocencia Frank CNM Delivery Date: 03/05/18 Tip placenta with trailing membranes, intact with 3VC. Sushma Gr DS: Data Vitals/I&O Vitals and I&O: Vital Signs Temperature 97.7 F 12/05/20 20:47 Pulse 90 12/05/20 20:47 Pulse Rhythm Regular 12/05/20 22:00 Respiratory Rate 18 12/05/20 20:47 Respiratory Depth Normal 12/05/20 22:00 Blood Pressure 128/73 12/05/20 20:47 Blood Pressure Mean 91 12/05/20 20:47 Pulse Oximetry 98 12/05/20 20:47 Oxygen Delivery Method Room Air 12/04/20 11:35 Oxygen Flow Rate 0 12/04/20 11:35 Pain Level 4 12/06/20 11:09 Comment 12/05/20 06:51 Intake & Output 12/05/20 12/06/20 12/06/20 23:59 11:59 23:59 Other: Urine Color Yellow Bright Red Data Completed and Pending Labs on day of discharge: Labs from last 24 hours 12/06/20 07:45 WBC 11.33 H RBC 3.39 L Hgb 10.0 L D Hct 29.8 L MCV 87.9 MCH 29.5 MCHC 33.6 RDW 12.8 Plt Count 214 MPV 9.8
[2020-12-10] MEDS: Hamamelis Leaf/Glycerin 100 EACH BOX PR (03:15)
[2020-12-10] MEDS: Dibucaine 1% 28 GM TUBE TP (03:16)
== END 2020-12-06 12:30 | disposition home or self-care (01) | DRG 807 ==
PROVIDERS: Admitting Provider Advanced Practice Midwife; PCP Nurse Practitioner Family; Visit Provider Advanced Practice Midwife
DX: O12.14 Gestational proteinuria, complicating childbirth (principal); Z37.0 Single live birth; O99.52 Diseases of the respiratory system complicating childbirth; O99.344 Other mental disorders complicating childbirth; F32.9 Major depressive disorder, single episode, unspecified; Z3A.39 39 weeks gestation of pregnancy; J45.909 Unspecified asthma, uncomplicated; Z87.891 Personal history of nicotine dependence; Z20.822 Contact with and (suspected) exposure to COVID-19; O90.81 Anemia of the puerperium; D64.9 Anemia, unspecified
CPT/HCPCS: 36415; 80053; 85027; 86850; 86900; 86901; 87635; 82565; 84156; 84550; 88307; J3010; J3490

== ENCOUNTER 2021-02-12 09:19 | Outpatient (CLI) | payer MEDICAID, SELFPAY ==
[2021-02-13 02:16] LABS: COVID-19 RT-PCR UVMMC Result Negative (Negative)
== END 2021-02-12 09:20 | disposition home or self-care (01) ==
LOC: LBO 09:20
PROVIDERS: PCP Nurse Practitioner Family; Visit Provider Pediatrics
DX: Z20.822 Contact with and (suspected) exposure to COVID-19 (principal)
CPT/HCPCS: U0003

== ENCOUNTER 2021-09-05 20:14 | Outpatient (REF) | payer MEDICAID, SELFPAY ==
[2021-09-05 22:19] LABS: Bacteria Few HPF (Negative); C & S Indicated? C&S Done As Ordered; Crystals Negative HPF (Negative); Epithelial Cells Few HPF (Negative); Mucus Negative (Negative); RBC Negative HPF (0-2); WBC 0-2 HPF (0-5)
== END 2021-09-05 20:15 | disposition home or self-care (01) ==
LOC: LBN 20:14
PROVIDERS: PCP Nurse Practitioner Family; Visit Provider Physician Assistant Medical
DX: R35.0 Frequency of micturition (principal)
CPT/HCPCS: 81015; 87086

== ENCOUNTER 2022-01-28 17:19 | Outpatient (REF) | payer MEDICAID, SELFPAY ==
[2022-01-30 11:23] LABS: COVID-19 RT-PCR UVMMC Result Negative (Negative)
== END 2022-01-28 17:20 | disposition home or self-care (01) ==
LOC: LBN 17:19
PROVIDERS: PCP Nurse Practitioner Family; Visit Provider Physician Assistant Medical
DX: J02.9 Acute pharyngitis, unspecified (principal); Z20.822 Contact with and (suspected) exposure to COVID-19
CPT/HCPCS: U0003; 87081

== ENCOUNTER 2022-02-11 13:05 | Emergency (ER) | payer MEDICAID, SELFPAY ==
[2022-02-11] VITALS (28 sets, daily range): BP systolic 97–136; BP diastolic 59–87; PULSE 71–95; RESP 14–28; TEMP 37; O2SAT 96–100
--- NOTE | 2022-02-11 13:00 | RT.EKG_ITS ---
APPROVED REPORT Exam: Resting ECG Reason for Exam: PALPTATIONS Patient Location: E HR:77 bpm ECG Measurements Heart Rate 77 AXIS OK 127 P 23 QRSd 82 QRS 50 QT 390 T 35 QTc 443 Conclusion Sinus rhythm...normal P axis, V-rate 60- 99
[2022-02-11 13:57] LABS: Abs Immature Grans 0.04 10^3/uL (0.0-0.06); Absolute Basophil Count 0.03 10^3/uL (0.0-0.2); Absolute Eosinophil Count 0.09 10^3/uL (0.0-0.7); Absolute Lymphocyte Count 1.39 10^3/uL (1.2-3.4); Absolute Monocyte Count 0.72 10^3/uL (0.1-0.8); Absolute Neutrophil Count 6.16 10^3/uL (1.2-6.7); Basophils % 0.4; Eosinophils % 1.1; HGB 14.9 g/dL (11.2-15.7); Immature Grans % 0.5; Lymphocytes % 16.5; MCH 31.7 pg (27.0-33.0); MCHC 34.7 % (32.0-36.0); MCV 92 fL (80-95); MPV 8.8 fL (8.0-11.0); Monocytes % 8.5; Platelet Count 302 10^3/uL (130-400); RDW 11.7 % (11.7-14.6); RDW-SD 39.7 fL; WBC 8.43 10^3/uL (4.4-10.8)
[2022-02-11 14:00] LABS: Bilirubin Negative (Negative); Blood Negative (Negative); Clarity Clear (Clear); Glucose Negative (Negative); Ketones Negative (Negative); Leukocyte Esterase Moderate (Negative); Nitrite Negative (Negative); Urobilinogen 0.2 EU/dL (Up TO 0.2)
--- NOTE | 2022-02-11 14:03 | W.ED.GENAD ---
Discharge Plan Discharge Details Chief Complaint: Palpitatns Primary Care Provider: Apryl Bello ED Provider: Sherwin Miranda Home Meds and New Rx's Prescriptions: No Action cetirizine 10 mg tablet 10 mg PO DAILY Label Comments: takes 2 tabs daily if needed albuterol sulfate 0.63 mg/3 mL solution for nebulization 0.63 mg inhalation TID PRN Medical Decision Making 26-year-old female reports heart rate in the 80s, palpitations, feeling short of breath, diaphoretic, intermittently over the past 4 days. Took her blood pressure at home and was elevated. Clinically she appears well, nontoxic, normotensive, heart rate in the 90s. No calf pain or swelling. Differential is broad and includes but not excluded to SVT, PE, A. fib, anxiety, etc. Plan to obtain IV access, obtain routine screening laboratory values, TSH, including a urinalysis given her dysuria. Will obtain a D-dimer and if positive obtain CTA of the chest. We will obtain a delta troponin given her chest pain. Patient remains asymptomatic and normotensive. Initial laboratory values are unremarkable for any obvious emergent process. Will obtain chest x-ray, not CTA of the chest. Urinalysis with leuk esterase 5-10 white cells, believe treating with 5 days of Keflex is reasonable. Medical Records Medical records reviewed: Yes I reviewed the patient's medical records. Imaging Data Radiologic Study: Attestation: I personally reviewed and interpreted this imaging study as follows: Imaging: X-Ray Radiologist's impression: Exam(s) XR CHEST 2V PA LATERAL EXAM: XR CHEST 2V PA LATERAL CLINICAL HISTORY: Palpitations. TECHNIQUE: 2D digital imaging was performed. COMPARISON: No exams were available for comparison FINDINGS: 2 views: Heart size is normal. The mediastinum is not widened. Lungs are clear. No infiltrates nor pleural effusions. IMPRESSION: No acute pulmonary findings. Lab Data Lab results reviewed: Yes I reviewed the patient's lab results. Labs: Laboratory Tests Range/Units 02/11/22 02/11/22 02/11/22 13:30 13:30 13:30 WBC (4.4-10.8) 10^3/uL RBC (3.93-5.22) 10^6/uL Hgb (11.2-15.7) g/dL Hct (36.0-46.0) % MCV (80-95) fL MCH (27.0-33.0) pg MCHC (32.0-36.0) % RDW (11.7-14.6) % Plt Count (130-400) 10^3/uL MPV (8.0-11.0) fL Immature Gran % Neutrophils % Lymphocytes % Monocytes % Eosinophils % Basophils % Nucleated RBC % (0.0-0.3) % Absolute Neutrophils (1.2-6.7) 10^3/uL Absolute Lymphocytes (1.2-3.4) 10^3/uL Absolute Monocytes (0.1-0.8) 10^3/uL Absolute Eosinophils (0.0-0.7) 10^3/uL Absolute Basophils (0.0-0.2) 10^3/uL PT (9.3-11.0) sec 9.9 INR (0.9-1.1) 1.0 APTT (21.0-27.5) sec 25.0 D-Dimer (<500) ng/mlFEU 138 Sodium (136-145) mmol/L 135 L Potassium (3.5-5.1) mmol/L 3.6 Chloride (98-107) mmol/L 102 Carbon Dioxide (21.0-32.0) mmol/L 27.0 Anion Gap (3-11) mmol/L 6.0 BUN (7-18) mg/dL 13 Creatinine (0.55-1.02) mg/dL 0.7 Est GFR (CKD-EPI 2020) (mL/min/1.73m2) 123.01 Glucose (74-106) mg/dL 86 Calcium (8.5-10.1) mg/dL 8.9 Magnesium (1.8-2.4) mg/dL 1.8 Total Bilirubin (0.2-1.0) mg/dL 1.1 H AST (15-37) U/L 21 ALT (14-59) U/L 18 Alkaline Phosphatase (46-116) U/L 54 Troponin I (<or=60) ng/L < 50 Total Protein (6.4-8.2) g/dL 7.7 Albumin (3.4-5.0) g/dL 3.9 TSH (0.36-3.74) uIU/mL 1.45 Urine Color (Yellow) Urine Clarity (Clear) Urine pH (5-8) Ur Specific Mershon (1.005-1.025) Urine Protein (Negative) mg/dL Urine Ketones (Negative) mg/dL Urine Blood (Negative) Urine Nitrite (Negative) Urine Bilirubin (Negative) Urine Urobilinogen (Up TO 0.2) EU/dL Ur Leukocyte Esterase (Negative) Urine RBC (0-2) HPF Urine WBC (0-5) HPF Ur Epithelial Cells (Negative) HPF Urine Crystals (Negative) HPF Urine Bacteria (Negative) HPF Urine Casts (Negative) LPF Urine Mucus (Negative) Ur Culture Indicated? Urine Glucose (Negative) mg/dL COVID-19 Source Range/Units 02/11/22 02/11/22 02/11/22 13:30 13:45 13:55 WBC (4.4-10.8) 10^3/uL 8.43 RBC (3.93-5.22) 10^6/uL 4.70 Hgb (11.2-15.7) g/dL 14.9 Hct (36.0-46.0) % 43.0 MCV (80-95) fL 92 MCH (27.0-33.0) pg 31.7 MCHC (32.0-36.0) % 34.7 RDW (11.7-14.6) % 11.7 Plt Count (130-400) 10^3/uL 302 MPV (8.0-11.0) fL 8.8 Immature Gran % 0.5 Neutrophils % 73.0 Lymphocytes % 16.5 Monocytes % 8.5 Eosinophils % 1.1 Basophils % 0.4 Nucleated RBC % (0.0-0.3) % 0.0 Absolute Neutrophils (1.2-6.7) 10^3/uL 6.16 Absolute Lymphocytes (1.2-3.4) 10^3/uL 1.39 Absolute Monocytes (0.1-0.8) 10^3/uL 0.72 Absolute Eosinophils (0.0-0.7) 10^3/uL 0.09 Absolute Basophils (0.0-0.2) 10^3/uL 0.03 PT (9.3-11.0) sec INR (0.9-1.1) APTT (21.0-27.5) sec D-Dimer (<500) ng/mlFEU Sodium (136-145) mmol/L Potassium (3.5-5.1) mmol/L Chloride (98-107) mmol/L Carbon Dioxide (21.0-32.0) mmol/L Anion Gap (3-11) mmol/L BUN (7-18) mg/dL Creatinine (0.55-1.02) mg/dL Est GFR (CKD-EPI 2020) (mL/min/1.73m2) Glucose (74-106) mg/dL Calcium (8.5-10.1) mg/dL Magnesium (1.8-2.4) mg/dL Total Bilirubin (0.2-1.0) mg/dL AST (15-37) U/L ALT (14-59) U/L Alkaline Phosphatase (46-116) U/L Troponin I (<or=60) ng/L Total Protein (6.4-8.2) g/dL Albumin (3.4-5.0) g/dL TSH (0.36-3.74) uIU/mL Urine Color (Yellow) Yellow Cancelled Urine Clarity (Clear) Clear Cancelled Urine pH (5-8) 7.0 Cancelled Ur Specific M[place]hon (1.005-1.025) 1.020 Cancelled Urine Protein (Negative) mg/dL Negative Cancelled Urine Ketones (Negative) mg/dL Negative Cancelled Urine Blood (Negative) Negative Cancelled Urine Nitrite (Negative) Negative Cancelled Urine Bilirubin (Negative) Negative Cancelled Urine Urobilinogen (Up TO 0.2) EU/dL 0.2 Cancelled Ur Leukocyte Esterase (Negative) Moderate H Cancelled Urine RBC (0-2) HPF Negative Urine WBC (0-5) HPF 5-10 Ur Epithelial Cells (Negative) HPF Moderate Urine Crystals (Negative) HPF Negative Urine Bacteria (Negative) HPF Few Urine Casts (Negative) LPF Negative Urine Mucus (Negative) Negative Ur Culture Indicated? No/Sq. Contamination Urine Glucose (Negative) mg/dL Negative Cancelled COVID-19 Source Range/Units 02/11/22 14:50 WBC (4.4-10.8) 10^3/uL RBC (3.93-5.22) 10^6/uL Hgb (11.2-15.7) g/dL Hct (36.0-46.0) % MCV (80-95) fL MCH (27.0-33.0) pg MCHC (32.0-36.0) % RDW (11.7-14.6) % Plt Count (130-400) 10^3/uL MPV (8.0-11.0) fL Immature Gran % Neutrophils % Lymphocytes % Monocytes % Eosinophils % Basophils % Nucleated RBC % (0.0-0.3) % Absolute Neutrophils (1.2-6.7) 10^3/uL Absolute Lymphocytes (1.2-3.4) 10^3/uL Absolute Monocytes (0.1-0.8) 10^3/uL Absolute Eosinophils (0.0-0.7) 10^3/uL Absolute Basophils (0.0-0.2) 10^3/uL PT (9.3-11.0) sec INR (0.9-1.1) APTT (21.0-27.5) sec D-Dimer (<500) ng/mlFEU Sodium (136-145) mmol/L Potassium (3.5-5.1) mmol/L Chloride (98-107) mmol/L Carbon Dioxide (21.0-32.0) mmol/L Anion Gap (3-11) mmol/L BUN (7-18) mg/dL Creatinine (0.55-1.02) mg/dL Est GFR (CKD-EPI 2020) (mL/min/1.73m2) Glucose (74-106) mg/dL Calcium (8.5-10.1) mg/dL Magnesium (1.8-2.4) mg/dL Total Bilirubin (0.2-1.0) mg/dL AST (15-37) U/L ALT (14-59) U/L Alkaline Phosphatase (46-116) U/L Troponin I (<or=60) ng/L Total Protein (6.4-8.2) g/dL Albumin (3.4-5.0) g/dL TSH (0.36-3.74) uIU/mL Urine Color (Yellow) Urine Clarity (Clear) Urine pH (5-8) Ur Specific M[place]hon (1.005-1.025) Urine Protein (Negative) mg/dL Urine Ketones (Negative) mg/dL Urine Blood (Negative) Urine Nitrite (Negative) Urine Bilirubin (Negative) Urine Urobilinogen (Up TO 0.2) EU/dL Ur Leukocyte Esterase (Negative) Urine RBC (0-2) HPF Urine WBC (0-5) HPF Ur Epithelial Cells (Negative) HPF Urine Crystals (Negative) HPF Urine Bacteria (Negative) HPF Urine Casts (Negative) LPF Urine Mucus (Negative) Ur Culture Indicated? Urine Glucose (Negative) mg/dL COVID-19 Source Nasal/Nares ECG Data Attestation: I personally reviewed and interpreted this ECG (s) as follows: Interpretation: Sinus rhythm, ventricular rate of 77, no STEMI. Sign Out Yes HPI General Mode of arrival: ambulatory. Date/Time Provider Initiated Documentation: 02/11/22 13:26. Limitations to Documentation: no limitations. Information obtained by: patient. HPI Narrative: This is a 26-year-old female with a past medical history of asthma, smokes marijuana daily, presenting to the ER for evaluation of heart rate intermittently in the 180s, palpitations, when this occurs increased anxiety and shortness of breath over the past 4 days. Patient reports that this first began simply breast-feeding her 1-year-old child. She denies fever or cough. She reports that intermittently she is also had some pinching between her breast but denies any pain now. It does not radiate anywhere. She states that she took her blood pressure at home, a self manual blood pressure, and was over 200/100. She denies abdominal pain, nausea, vomiting, pain or swelling in her legs, history of DVT. Related Data Home Medications Medication Instructions Recorded Confirmed cetirizine 10 mg tablet 10 mg PO DAILY 10/01/20 02/11/22 albuterol sulfate 0.63 mg/3 mL 0.63 mg inhalation TID PRN 12/04/20 02/11/22 solution for nebulization Allergies Allergy/AdvReac Type Severity Reaction Status Date / Time tree and shrub pollen Allergy Severe asthma Verified 02/11/22 13:25 attack General Stated Complaint: Palpitatns JULISSA: 3 Review of Systems Constitutional Constitutional: Denies fever(s) and Denies weakness ENT Ears, Nose, Mouth, and Throat: Denies neck pain Cardiovascular Cardiovascular: Reports chest pain and Reports dyspnea Respiratory Respiratory: Denies cough and Reports dyspnea Gastrointestinal Gastrointestinal: Denies abdominal pain, Denies nausea and Denies vomiting Genitourinary Genitourinary: Reports dysuria Musculoskeletal Musculoskeletal: Denies back pain and Denies neck pain Integumentary/Breasts Skin/Breast: Denies rash Neurologic Neurologic: Denies weakness PFSH All Active Problems Skin cancer screening (Acute) Hemorrhoid (Acute) Rubella non-immune status, antepartum (Acute) equivocal Maternal varicella, non-immune (Acute) Asthma action plan declined (Acute) Marijuana use (Acute) Medical History Breast lump 02/2020. Right breast. Normal clinical breast exam. Dysuria Elective induction of labor planned Elevated blood pressure affecting in third trimester, antepartum Encounter for screening for other viral diseases Encounter for screening laboratory testing for COVID-19 virus Maternal varicella, non-immune Nausea and vomiting Nausea and vomiting during Proteinuria affecting in third trimester Screening examination for sexually transmitted disease Family History Mother Asthma Maternal Uncle Substance abuse Social History Smoking/Tobacco Use Status: Former Tobacco Use Tobacco: How many years used: 1 Smoking risk assessment performed?: Yes Alcohol Intake: current Alcohol Intake frequency: holidays/special occasions only Drug use: Daily Substance use type: marijuana Household members: children and other Details: Reuben. Number of Children: 1 Do you feel safe at home: Yes Do you feel safe in your relationship?: Yes Female Reproductive History Menstrual control method: condoms History History 2 Para 2 Hx # Term Pregnancies 2 Multiple births 0 Hx # Pregnancies 0 Ectopic pregnancies 0 AB induced 0 Hx Number of Living Children 2 AB spontaneous 0 Past Pregnancies Del. Date GA/Weeks # Preg Succ Route Wgt Sex Labor Lgth Anesthesia Location Prov Complic 03/05/18 39 No vaginal 3742.137 g Male bryce Frank CNM 12/05/20 39 No vaginal 3572.04 g Male 7hrs 30 min bryce Cárdenas CNM Delivery Date: 03/05/18 Last Updated by: Sushma Whelan placenta with trailing membranes, intact with 3VC. Delivery Date: 12/05/20 Last Updated by: Sushma Epperson LPN Induced due to Preeclampsia, Right hand presented with head, short cord Exam Const General: cooperative, healthy appearing, comfortable and no acute distress Orientation: alert, awake and oriented x3 HENMT Head: normal to inspection, normocephalic and atraumatic Face and sinus: normal facial exam Mouth: moist mucous membranes Eyes General: appearance normal, both eyes and all related structures Conjunctivae: conjunctivae normal Neck Neck: normal visual inspection, full ROM, no meningeal signs, trachea midline and supple Resp Effort & Inspection: normal respiratory effort and able to speak in complete sentences Auscultation: clear to auscultation bilaterally Cardio Rate: regular rate Rhythm: regular rhythm GI Palpation: soft and nontender Back/Spine/Pelvis Back: No back tenderness Skin General skin exam: no rashes or lesions noted Neuro General: patient alert, patient awake, moves all extremities and no focal motor deficits Cognition: normal cognition Speech: speech normal Gait: normal gait Motor: muscle tone normal throughout Sensory Exam: no sensory deficits noted Extrem General: normal to inspection, full ROM, capillary refill normal, no pedal edema and no calf tenderness Psych Appearance: grossly normal Mental Status: mental status grossly normal Course Vital Signs Vital signs: Vital Signs Temperature 37.0 C 02/11/22 13:19 Pulse 86 02/11/22 13:19 Respiratory Rate 14 02/11/22 13:19 Blood Pressure 129/77 02/11/22 13:19 Pulse Oximetry 100 02/11/22 13:19 Temperature 37.0 C 02/11/22 13:19 Temperature Source Temporal Artery Scan 02/11/22 13:19 Pulse 86 02/11/22 13:19 Respiratory Rate 14 02/11/22 13:19 Respiratory Effort Non-Labored 02/11/22 13:23 Blood Pressure 129/77 02/11/22 13:19 Blood Pressure Position Sitting 02/11/22 13:19 Pulse Oximetry 100 02/11/22 13:19 Oxygen Delivery Method Room Air 02/11/22 13:19 Oxygen Flow Rate 0 02/11/22 13:19 Pain Level 0 02/11/22 13:19 Lab/Test Results Lab/Test Results: Laboratory Tests Range/Units 02/11/22 13:30 WBC (4.4-10.8) 10^3/uL 8.43 RBC (3.93-5.22) 10^6/uL 4.70 Hgb (11.2-15.7) g/dL 14.9 Hct (36.0-46.0) % 43.0 MCV (80-95) fL 92 MCH (27.0-33.0) pg 31.7 MCHC (32.0-36.0) % 34.7 RDW (11.7-14.6) % 11.7 Plt Count (130-400) 10^3/uL 302 MPV (8.0-11.0) fL 8.8 Immature Gran % 0.5 Neutrophils % 73.0 Lymphocytes % 16.5 Monocytes % 8.5 Eosinophils % 1.1 Basophils % 0.4 Nucleated RBC % (0.0-0.3) % 0.0 Absolute Neutrophils (1.2-6.7) 10^3/uL 6.16 Absolute Lymphocytes (1.2-3.4) 10^3/uL 1.39 Absolute Monocytes (0.1-0.8) 10^3/uL 0.72 Absolute Eosinophils (0.0-0.7) 10^3/uL 0.09 Absolute Basophils (0.0-0.2) 10^3/uL 0.03 POC- Test(urine) Negative PAWSS Have you Been Recently Intoxicated or Drunk Within the Last 30 days?: Yes Have you Ever Experienced Previous Episodes of Alcohol Withdrawal?: No Have you ever Experienced Withdrawal Seizures?: No Have you ever Experienced Delirium Tremens(DT)s?: No Have you ever undergone Alcohol Rehabilitation Treatment (i.e, inpt ot outpatient treatment programs)?: No Have you ever Experienced Blackouts?: No Have you ever Combined Alcohol with other Downers within the last 90 days?: No Have you ever Combined Alcohol with any other Substance of Abuse during the last 90 days?: No Positive Blood Alcohol level on Presentation? [PCS.BAL]: No Evidence of Increased Autonomic Activity (i.e. HR>120, tremor, sweating, agitation, nausea)?: No Result: 1
[2022-02-11 14:06] LABS: Bacteria Few HPF (Negative); C & S Indicated? No/Sq. Contamination; Casts Negative LPF (Negative); Crystals Negative HPF (Negative); Epithelial Cells Moderate HPF (Negative); Mucus Negative (Negative); RBC Negative HPF (0-2)
[2022-02-11 14:15] LABS: ALT 18 U/L (14-59); AST 21 U/L (15-37); Albumin 3.9 g/dL (3.4-5.0); Alkaline Phosphatase 54 U/L (46-116); BUN 13 mg/dL (7-18); Bilirubin, Total 1.1 mg/dL (0.2-1.0); CREATININE 0.7 mg/dL (0.55-1.02); Calcium 8.9 mg/dL (8.5-10.1); Chloride 102 mmol/L (98-107); Estimated GFR 123.01 (mL/min/1.73m2); Glucose 86 mg/dL (74-106); Magnesium 1.8 mg/dL (1.8-2.4); Potassium 3.6 mmol/L (3.5-5.1); Sodium 135 mmol/L (136-145); Total Protein 7.7 g/dL (6.4-8.2); Troponin I < 50 ng/L (<or=60)
[2022-02-11 14:21] LABS: TSH (W/Ref FT4) 1.45 uIU/mL (0.36-3.74)
[2022-02-11 14:27] LABS: D-Dimer 138 ng/mlFEU (<500)
[2022-02-11 14:30] LABS: Prothrombin Time 9.9 sec (9.3-11.0)
[2022-02-11 14:53] LABS: Source Nasal/Nares
--- NOTE | 2022-02-11 15:06 | DI.RAD_ITS ---
Exam(s) XR CHEST 2V PA LATERAL EXAM: XR CHEST 2V PA LATERAL CLINICAL HISTORY: Palpitations. TECHNIQUE: 2D digital imaging was performed. COMPARISON: No exams were available for comparison FINDINGS: 2 views: Heart size is normal. The mediastinum is not widened. Lungs are clear. No infiltrates nor pleural effusions. IMPRESSION: No acute pulmonary findings. DATA REPOSITORY: RADIATION DOSE DELIVERED:
[2022-02-11 15:33] LABS: COVID-19 PCR Negative (Negative)
[2022-02-11 16:37] LABS: Troponin I < 50 ng/L (<or=60)
--- NOTE | 2022-02-12 09:15 | CMACTNOTE_ITS ---
- If Service Date Differs Date of service: 02/12/22 Time of Service: 09:15 Care Management Activity Note Fiona is seen in the ED for palpitations. MEE contacts the [facility] to ensure Fiona obtains a follow up appointment. MEE is informed by [facility] staff that Fiona is not a patient of [facility] but she has previously been seen at [facility]. MEE then calls the [facility] and speaks with NATALIA Betts, care coordin or. Roxane confirms that Fiona is a former patient of [facility] but advises she is no longer an active patient. Roxane agrees to contact Fiona to offer a follow up appointment and to inquire if she wishes to reestablish care with their health center.
--- NOTE | 2022-02-12 09:15 | PDOC.ERCMACT ---
- If Service Date Differs Date of service: 02/12/22 Time of Service: 09:15 Care Management Activity Note Fiona is seen in the ED for palpitations. MEE contacts the [facility] to ensure Fiona obtains a follow up appointment. MEE is informed by [facility] staff that Fiona is not a patient of [facility] but she has previously been seen at [facility]. MEE then calls the [facility] and speaks with NATALIA Betts, acute care assistant. Roxane confirms that Fiona is a former patient of [facility] but advises she is no longer an active patient. Roxane agrees to contact Fiona to offer a follow up appointment and to inquire if she wishes to reestablish care with their health center.
== END 2022-02-11 17:13 | disposition home or self-care (01) ==
PROVIDERS: Physician Assistant; Emergency Provider Physician Assistant; PCP Nurse Practitioner Family
DX: R00.2 Palpitations (principal); R06.02 Shortness of breath; Z20.822 Contact with and (suspected) exposure to COVID-19
CPT/HCPCS: 36415; 80053; 81025; 87635; 93005; 99284; 71046; 81003; 81015; 83735; 84443; 84484; 85025; 85379; 85610; 85730; 93010; 99285

== ENCOUNTER 2022-03-13 07:46 | Emergency (ER) | payer MEDICAID, SELFPAY ==
[2022-03-13 07:55] VITALS: BP 110/78; PULSE 77; RESP 16; TEMP 36.3; O2SAT 98
[2022-03-13] MEDS: Dexamethasone 10 MG/ML VIAL IVP (08:08)
--- NOTE | 2022-03-13 08:09 | ED.GENADUL_ITS ---
Discharge Plan Disposition Patient Disposition: Home Condition: Improving Discharge Details Chief Complaint: EarProblem Clinical Impression: Acute viral syndrome Primary Care Provider: Apryl Bello ED Provider: Darrell Li Home Meds and New Rx's Prescriptions: No Action cetirizine 10 mg tablet 10 mg PO DAILY Label Comments: takes 2 tabs daily if needed albuterol sulfate 0.63 mg/3 mL solution for nebulization 0.63 mg inhalation TID PRN Discharge Instructions Instructions: Viral Syndrome (ED) Additional Instructions: Please continue with acetaminophen and/or ibuprofen at home for pain and fevers. Ensure that you stay hydrated. Please follow-up with your primary care physician Medical Decision Making 26-year-old female presents with right eye irritation, nasal congestion, ear congestion over the past several days, of note son has a viral URI. TMs clear bilaterally, no nasal discharge, slight right eye conjunctival injection without purulent drainage. Likely viral sinusitis with component of viral conjunctivitis. Low suspicion for bacterial process at this time. Will dose dexamethasone for anti-inflammatory purposes. Home care instructions return precautions given. 8: 48 patient resting comfortably no acute distress. Son is positive for RSV. Home care instructions and return precautions given. HPI General Date/Time Provider Initiated Documentation: 03/13/22 07:58 . HPI Narrative: 26-year-old female presents with sinus pressure eye irritation ear pressure, son has viral URI. Related Data Home Medications Medication Instructions Recorded Confirmed cetirizine 10 mg tablet 10 mg PO DAILY 10/01/20 03/13/22 albuterol sulfate 0.63 mg/3 mL 0.63 mg inhalation TID PRN 12/04/20 03/13/22 solution for nebulization Allergies Allergy/AdvReac Type Severity Reaction Status Date / Time tree and shrub pollen Allergy Severe asthma Verified 03/13/22 07:58 attack General Stated Complaint: EarProblem JULISSA: 4 Review of Systems Narrative: Review of Systems Constitutional: negative Eyes: Eye irritation ENT: Nasal congestion, ear congestion Cardiovascular: negative Respiratory: negative Gastrointestinal: negative : negative Musculoskeletal: negative Skin: negative Neurologic: negative Psych: negative PFSH All Active Problems Heart palpitations (Acute) Tachycardia (Acute) Acute viral syndrome (Acute) Palpitations (Acute) Skin cancer screening (Acute) Hemorrhoid (Acute) Rubella non-immune status, antepartum (Acute) equivocal Maternal varicella, non-immune (Acute) Asthma action plan declined (Acute) Marijuana use (Acute) Medical History Breast lump 02/2020. Right breast. Normal clinical breast exam. Dysuria Elective induction of labor planned Elevated blood pressure affecting in third trimester, antepartum Encounter for screening for other viral diseases Encounter for screening laboratory testing for COVID-19 virus Maternal varicella, non-immune Nausea and vomiting Nausea and vomiting during Proteinuria affecting in third trimester Screening examination for sexually transmitted disease Family History Mother Asthma Maternal Uncle Substance abuse Social History Smoking/Tobacco Use Status: Former Tobacco Use Tobacco: How many years used: 1 Smoking risk assessment performed?: Yes Alcohol Intake: current Alcohol Intake frequency: 0-2 drinks per day Drug use: Never Substance use type: does not use Household members: children and other Details: Reuben. Number of Children: 1 Do you feel safe at home: Yes Do you feel safe in your relationship?: Yes Female Reproductive History Menstrual control method: condoms History History 2 Para 2 Hx # Term Pregnancies 2 Multiple births 0 Hx # Pregnancies 0 Ectopic pregnancies 0 AB induced 0 Hx Number of Living Children 2 AB spontaneous 0 Past Pregnancies Del. Date GA/Weeks # Preg Succ Route Wgt Sex Labor Lgth Anesth esia Location [facility] 03/05/18 39 No vaginal 3742.137 g Male bryce Frank CNM 12/05/20 39 No vaginal 3572.04 g Male 7hrs 30 min [facility] LARA C[facility]denas Delivery Date: 03/05/18 Last Updated by: Sushma Whelan placenta with trailing membranes, intact with 3VC. Delivery Date: 12/05/20 Last Updated by: Sushma Epperson LPN Induced due to Preeclampsia, Right hand presented with head, short cord Exam Narrative Exam Narrative: Physical Examination General: alert, awake, cooperative, resting comfortably, no acute distress HEENT: normocephalic, atraumatic; PERRL, EOM intact, conjunctiva normal; no nasal discharge; moist mucous membranes, oral and pharyngeal mucosa normal, tolerating secretions; TMs clear bilaterally, no nasal discharge, mild right conjunctival injection without discharge Neck: supple, trachea midline; full ROM Chest: normal to inspection Respiratory: normal respiratory effort, speaking in full sentences, clear to auscultation, no wheezing, rales or rhonchi Cardiac: regular rate, regular rhythm, S1S2 intact, no murmurs rubs or gallops GI: abdomen soft, non-tender, non-distended; no palpable mass or hepatosplenomegaly Skin: no lesions, rashes or trauma appreciated Neuro: AAOx3, normal speech, moving all extremities Psych: Appropriate mood and affect Course Vital Signs Vital signs: Vital Signs Temperature 36.3 C L 03/13/22 07:55 Pulse 77 03/13/22 07:55 Respiratory Rate 16 03/13/22 07:55 Blood Pressure 110/78 03/13/22 07:55 Pulse Oximetry 98 03/13/22 07:55 Temperature 36.3 C L 03/13/22 07:55 Temperature Source Temporal Artery Scan 03/13/22 07:55 Pulse 77 03/13/22 07:55 Respiratory Rate 16 03/13/22 07:55 Respiratory Effort Non-Labored 03/13/22 07:58 Blood Pressure 110/78 03/13/22 07:55 Blood Pressure Position Sitting 03/13/22 07:55 Pulse Oximetry 98 03/13/22 07:55 Oxygen Delivery Method Room Air 03/13/22 07:55 Oxygen Flow Rate 0 03/13/22 07:55 PAWSS Have you Been Recently Intoxicated or Drunk Within the Last 30 days?: No Have you Ever Experienced Previous Episodes of Alcohol Withdrawal?: No Have you ever Experienced Withdrawal Seizures?: No Have you ever Experienced Delirium Tremens(DT)s?: No Have you ever undergone Alcohol Rehabilitation Treatment (i.e, inpt ot outpatient treatment programs)?: No Have you ever Experienced Blackouts?: No Have you ever Combined Alcohol with other Downers within the last 90 days?: No Have you ever Combined Alcohol with any other Substance of Abuse during the last 90 days?: No Positive Blood Alcohol level on Presentation? [PCS.BAL]: No Evidence of Increased Autonomic Activity (i.e. HR>120, tremor, sweating, agitation, nausea)?: No Result: 0
== END 2022-03-13 08:59 | disposition home or self-care (01) ==
PROVIDERS: Emergency Provider Emergency Medicine; PCP Nurse Practitioner Family
DX: R09.81 Nasal congestion (principal); H92.03 Otalgia, bilateral; B97.4 Respiratory syncytial virus as the cause of diseases classified elsewhere
CPT/HCPCS: 99283; J1100

== ENCOUNTER 2022-04-14 16:15 | Outpatient (REF) | payer MEDICAID, SELFPAY ==
[2022-04-16 13:53] LABS: Chlamydia Result Negative (Negative); GC Result Negative (Negative)
== END 2022-04-14 16:16 | disposition home or self-care (01) ==
LOC: LBN 16:15
PROVIDERS: PCP Nurse Practitioner Family; Visit Provider Advanced Practice Midwife
DX: N92.5 Other specified irregular menstruation (principal); R30.0 Dysuria; Z11.3 Encounter for screening for infections with a predominantly sexual mode of transmission
CPT/HCPCS: 87491; 87591; 87086; 87480; 87510; 87660

== ENCOUNTER 2022-05-26 16:50 | Outpatient (REF) | payer MEDICAID, SELFPAY ==
[2022-05-26 17:36] LABS: Bilirubin Negative (Negative); Blood Negative (Negative); Clarity Clear (Clear); Glucose Negative (Negative); Ketones Negative (Negative); Leukocyte Esterase Negative (Negative); Nitrite Negative (Negative); Urobilinogen 0.2 mg/dL (Up to 0.2)
== END 2022-05-26 16:51 | disposition home or self-care (01) ==
LOC: LBN 16:50
PROVIDERS: PCP Nurse Practitioner Family; Visit Provider Advanced Practice Midwife
DX: R30.0 Dysuria (principal); R35.0 Frequency of micturition
CPT/HCPCS: 81003; 87086

== ENCOUNTER 2023-05-20 18:02 | Outpatient (CLI) | payer OTHER, MEDICAID, SELFPAY ==
[2023-05-20 16:28] LABS: HCT 39.3 % (36.0-46.0); HGB 13.7 g/dL (11.2-15.7); MCH 31.1 pg (27.0-33.0); MCHC 34.9 % (32.0-36.0); MCV 89 fL (80-95); MPV 8.7 fL (8.0-11.0); Platelet Count 388 10^3/uL (130-400); RBC 4.41 10^6/uL (3.93-5.22); RDW 11.6 % (11.7-14.6); RDW-SD 37.1 fL; WBC 8.81 10^3/uL (4.4-10.8)
[2023-05-20 17:10] LABS: Anion Gap 10.6 mmol/L (3-11); BUN 8 mg/dL (7-18); CO2 25.4 mmol/L (21.0-32.0); CREATININE 0.7 mg/dL (0.55-1.02); Calcium 9.3 mg/dL (8.5-10.1); Chloride 103 mmol/L (98-107); Estimated GFR 122.25 (mL/min/1.73m2); Glucose 99 mg/dL (74-106); Potassium 3.8 mmol/L (3.5-5.1); Sodium 139 mmol/L (136-145)
[2023-05-20 17:54] LABS: Lab Add On Test DONE
== END 2023-05-20 18:03 | disposition home or self-care (01) ==
LOC: LBO 18:07
PROVIDERS: PCP Nurse Practitioner Family; Visit Provider Obstetrics & Gynecology Gynecology
DX: O02.1 Missed abortion (principal)
CPT/HCPCS: 36415; 80048; 85027; 86850; 86900; 86901; 84702

== ENCOUNTER 2023-05-21 06:33 | PSDC | payer OTHER, MEDICAID, SELFPAY ==
[2023-05-21] VITALS (10 sets, daily range): BP systolic 83–131; BP diastolic 36–79; PULSE 66–90; RESP 13–22; TEMP 36.3–37; O2SAT 96–100; BMI 29.0
--- NOTE | 2023-05-21 06:57 | W.ANESPRE ---
General Info Date of Service Date Performed: 05/21/23 Height: 5 ft 3 in Weight: 74.3 kg Body Mass Index (BMI): 29.0 Surgical Procedure: Operation Date: 05/21/23 07:40 Proposed Procedure Side Surgeon p Suction Completion Christina Maloney MD Meds Allergies and Home Medications Allergies Allergy/AdvReac Type Severity Reaction Status Date / Time tree and shrub pollen Allergy Severe asthma Verified 05/20/23 14:58 attack Home Medication Medication Instructions Recorded cetirizine 10 mg tablet 10 mg PO DAILY 10/01/20 albuterol sulfate 0.63 mg/3 mL 0.63 mg inhalation TID PRN 12/04/20 solution for nebulization omeprazole 20 mg tablet,delayed 20 mg PO DAILY #90 tabs 04/14/23 release ondansetron 4 mg disintegrating 4 mg PO Q6H PRN nausea and 04/14/23 tablet vomiting #90 tabs [id number] fum 28 mg 1 cap PO DAILY #90 caps 04/14/23 iron-folic acid 1 mg-omg3 200 mg capsule (C-Shantanu DHA) docusate sodium 100 mg capsule 100 mg PO BID #60 caps 04/27/23 (Colace) Current Visit Medications: Current Medications Generic Name Dose Route Start Last Admin Trade Name Freq PRN Reason Stop Dose Admin Ringer's Solution 1,000 mls @ 125 mls/hr 05/21/23 06:40 IV 06/20/23 06:39 INFUSION RENE Doxycycline Hyclate 100 mg/ 100 mls @ 100 mls/hr 05/21/23 06:45 Sodium Chloride IVPB 05/21/23 07:44 PREOP ONE IV Miscellaneous Supplies 1 each 05/21/23 06:40 Iv Access IV 06/20/23 06:39 DIRECTED RENE Sodium Chloride 0 ml 05/21/23 06:38 Normal Saline Flush 10 Ml Syr IVP 06/20/23 06:37 PRN PRN Sodium Chloride 0 ml 05/21/23 08:30 Normal Saline Flush 10 Ml Syr IVP 06/20/23 08:29 BID RENE Sodium Chloride 0 ml 05/21/23 06:38 Normal Saline 10 Ml Vial IJ 06/20/23 06:37 DIRECTED PRN PFSH Active Problems Active Problems: Problem Status Onset Code Missed O02.1 Z34.90 Palpitations R00.2 Hemorrhoid K64.9 Medical History Medical History Irregular menses Dysuria Asthma action plan declined Marijuana use Breast lump 02/2020. Right breast. Normal clinical breast exam. Tobacco Smoking/Tobacco Use Status: Former Tobacco Use Alcohol Alcohol Intake: current Alcohol intake frequency: 0-2 drinks per day Substance Use Substance use: Never Substance use type: does not use Prental History History 3 Para 2 Hx # Term Pregnancies 2 Multiple births 0 Hx # Pregnancies 0 Ectopic pregnancies 0 AB induced 0 Hx Number of Living Children 2 AB spontaneous 0 Past Pregnancies Del. Date GA/Weeks # Preg Succ Route Wgt Sex Labor Lgth Anesthesia Location Prov Complic 03/05/18 39 No vaginal 3742.137 g Male [facility] Inocencia Frank CNM 12/05/20 39 No vaginal 3572.04 g Male 7hrs 30 min bryce Cárdenas CNM Delivery Date: 03/05/18 Last Updated by: Sushma Whelan placenta with trailing membranes, intact with 3VC. Delivery Date: 12/05/20 Last Updated by: Sushma Epperson LPN Induced due to Preeclampsia, Right hand presented with head, short cord Vital Signs and Lab Results Lab Results Blood Type / Crossmatch: Patient ABO/Rh A Positive 05/20/23 Antibody Screen NEGATIVE 05/20/23 Complete Blood Count: White Blood Count 8.81 10^3/uL (4.4-10.8) 05/20/23 16:08 Red Blood Count 4.41 10^6/uL (3.93-5.22) 05/20/23 16:08 Hemoglobin 13.7 g/dL (11.2-15.7) 05/20/23 16:08 Hematocrit 39.3 % (36.0-46.0) 05/20/23 16:08 Platelet Count 388 10^3/uL (130-400) 05/20/23 16:08 Complete Metabolic Panel: Sodium 139 mmol/L (136-145) 05/20/23 16:08 Potassium 3.8 mmol/L (3.5-5.1) 05/20/23 16:08 Chloride 103 mmol/L (98-107) 05/20/23 16:08 Carbon Dioxide 25.4 mmol/L (21.0-32.0) 05/20/23 16:08 BUN 8 mg/dL (7-18) 05/20/23 16:08 Creatinine 0.7 mg/dL (0.55-1.02) 05/20/23 16:08 Est GFR (CKD-EPI 2020) 122.25 (mL/min/1.73m2) 05/20/23 16:08 Calcium 9.3 mg/dL (8.5-10.1) 05/20/23 16:08 Glucose 99 mg/dL (74-106) 05/20/23 16:08 Liver Function Panel: No Data to Display Coagulation Panel: No Data to Display Cardiac Panel: No Data to Display Arterial Blood Gas: No Data to Display Venous Blood Gas: No Data to Display Pancreas Panel: No Data to Display Thyroid Panel: No Data to Display Infectious Disease: No Data to Display Blood Cultures: No Data to Display Toxicology Panel: No Data to Display Panel: Beta HCG, Quantitative 97177 mIU/mL (1-3) H 05/20/23 16:08 Imaging and Studies Imaging and Studies Study information below may be from another EMR and interpreted by another provider. Please see original notes in EMR for more complete details. EKG Summary: EKG PATIENT NAME: Fiona Scruggs UNIT #: [id number] ORDERING PROVIDER: Gurmeet Grier M.D. PRIMARY CARE PROVIDER: SAHIL RUGGIERO NP DATE/TIME OF SERVICE: 02/11/22 1323 : 1995 PERFORMING LOCATION: ER APPROVED REPORT Exam: Resting ECG Reason for Exam: PALPTATIONS Patient Location: E HR:77 bpm ECG Measurements Heart Rate 77 AXIS MI 127 P 23 QRSd 82 QRS 50 QT 390 T35 QTc 443 Conclusion Sinus rhythm...normal P axis, V-rate 60- 99 <Electronically signed by GURMEET GRIER MD in OV> E-Sign Date: 02/11/22 E-Sign Time: 1325 ADDENDUM APPROVED REPORT Exam: Resting ECG Reason for Exam: PALPTATIONS Patient Location: E HR:77 bpm ECG Measurements Heart Rate 77 AXIS MI 127 P 23 QRSd 82 QRS 50 QT 390 T35 QTc 443 Conclusion Sinus rhythm...normal P axis, V-rate 60- 99 I have reviewed and I agree with the emergency room physician's ECG interpretation. Electronically signed by: <Electronically signed by Latanya Marks M.D. in OV> 02/12/22 1031 Cosigned by: Anesthesia Assessment and Plan Anesthesia History Personal History: No History of General Anesthesia Family History: No Family History of Anesthesia Complications Exercise Tolerance Exercise Tolerance: Metabolic Equivalents>4 Pertinent Negatives Pertinent Negatives: No Symptoms of GERD, No Major Cardiovascular Symptoms or Complaints, No Major Pulmonary Symptoms or Complaints and No History of CVA/TIA Cardiac & Pulmonary Exam Cardiac Exam: Normal S1/S2 Heart Sounds Pulmonary Exam: Clear Bilateral Breath Sounds Implantable Cardiac Device Does patient have a Pacemaker or an ICD?: No Airway Exam Known Difficult Airway: No Mallampati Class: 2 Mouth Opening: Normal (> 3cm) Thyromental Distance: Greater than 3 cm Neck Range of Motion: Full ROM Neck Circumference: Normal Teeth Condition: Normal Dentition ASA Classification ASA Score: ASA 2 Emergency Case?: No NPO Status NPO Status: NPO Clears >2 hours, Solids >8 hours Status Status: Confirmed (Missed AB) Anesthesia Plan Resuscitation Status: Full Code Anesthesia Technique: General Anesthesia Airway Planned: Natural Airway Monitors Used: Standard Monitors Preoperative Comments:: 27 yo F patient for suction completion. Hx of palpitations, Asthma (albuterol), Breast lump (normal exam), GERD? (omeprazole prescribed). Feels hungry and like her stomach is empty this morning. Patient does have a resolving cough and cold, about a week and a half out, no active symptoms today. We did discuss the increased risk of bronchospasm today.
[2023-05-21] MEDS: Lactated Ringers 1,000 ML 125 ML IV (07:24)
[2023-05-21] MEDS: DOXYCYCLINE 100 MG in Normal Saline 100 ML IVPB (07:24)
[2023-05-21] MEDS: Bupivacaine 0.25% Pres-Free 30 ML VIAL (08:01)
--- NOTE | 2023-05-21 08:03 | POCSPONT_PTH ---
PATIENT: Fioan Scruggs LOC: [facility] U#:[id number] AGE/SX: 27/F ROOM: RE05/21/[address]: Christina Maloney : 1995 BED: DIS: 05/21/2023 SPEC #: [id number] RECD: 05/21/23 12:57 STATUS: NURY REQ #: [id number] ELAINE: 05/21/23 08:[address]: Christina Maloney DEPT: Surgical Specimen RECD BY: Valeria Lake ENTERED: 05/21/23 12:57 SP TYPE: POCJUDY KNIGHT DR: Apryl Bello Tissues: 1 - ,SPONTANEOUS Procedures: GROSS AND MICRO LEVEL 4 IMMUNOPEROXIDASE STAIN Comments: [id number]
[2023-05-21] MEDS: ePHEDrine 25 MG/5 ML Syringe IVP (08:21)
--- NOTE | 2023-05-21 08:38 | W.PM.DSUDISC ---
Date of service: 05/21/23 Time of Service: 08:39 Discharge Plan Disposition Patient Disposition: Home Condition: Stable Condition: Stable Discharge Details Reason For Visit: D&C of embryonic demise Attending Provider: Christina Maloney Primary Care Provider: Apryl Bello [facility] Course Hospital Course: 27yo female with IUP with uncertain cardiac activity on intial OB u/s on 05/06/23 at [facility]. 8w2d EGA by LMP. OB u/s: 6w1d. pole present. Repeat TV u/s 05/20/23: pole present with CRL 6w0d without cardiac activity Home Meds and New Rx's Prescriptions: No Action C-Shantanu DHA 28 mg iron-1 mg -200 mg capsule 1 cap PO DAILY Qty: 90 6RF omeprazole 20 mg tablet,delayed release (DR/EC) 20 mg PO DAILY Qty: 90 3RF ondansetron 4 mg tablet,disintegrating 4 mg PO Q6H PRN (Reason: nausea and vomiting) Qty: 90 2RF cetirizine 10 mg tablet 10 mg PO DAILY Patient Comments: takes 2 tabs daily if needed docusate sodium [Colace] 100 mg capsule 100 mg PO BID Qty: 60 6RF albuterol sulfate 0.63 mg/3 mL solution for nebulization 0.63 mg inhalation TID PRN Discharge Instructions Additional Instructions: Make a follow up appointment with Dr. Maloney for 2 weeks. Ibuprofen 600mg every six hours for pain or Acetaminophen 500mg every 6 hours for pain. Stand Alone Forms: Anesthesia Discharge Inst., DSU Post D&C, Qasim Dockery (DSU) Activity:: nothing in vagina till 2 week postop visit. Shower/Bathe:: 24 hours Activity:: Activity as Tolerated Equipment/Supplies:: No Equipment Needed Diet:: As Tolerated Discharge Orders Discharge Orders: Discharge Order (Routine); Ordered 05/21/23 Ordered By: Christina Maloney Discharge Data Discharge Physician: Christina Maloney DS: Diagnosis Discharge Diagnosis (1) Missed : Status: Acute (2) H/O dilation and curettage: Status: Acute
[2023-05-21] MEDS: Ketorolac 30 MG/ML VIAL IVP (08:53)
--- NOTE | 2023-05-21 08:59 | ROE_ITS ---
Date of service: 05/21/23 Time of Service: 08:59 Operative Note Operative Note DATE OF PROCEDURE: 05/21/23 PRE-OP DIAGNOSIS: 10w embryonic demise PROCEDURE: Cervical dilation with suction evacuation of uterine contents SURGEON: Christina Maloney Refer to Anesthesia Record ESTIMATED BLOOD LOSS: 5 PATHOLOGY: other (POC to pathology) COMPLICATIONS: None Patient was transported to: PACU Patient's condition: stable Indications: 27yo female with documented embryonic demise at approximately 10 weeks EGA who consented to a suction D&C. Findings: Uterus sounded to 10cm. Empty uterine cavity visualized at completion of D&C. Procedure Description: Patient was taken to the operating room where she was placed in the dorsal supine position and monitored anesthesia care was administered without difficulty. IV Doxycycline was administered upon arrival in the OR. She was then placed in the dorsal lithotomy position in yellowfin stirrups in a neurologically neutral position. She was then prepped, and draped in the usual sterile fashion. Surgical timeout was performed. Urinary bladder drained for approximately 100cc of clear tomi urine. [place] speculum was placed into the vagina and the anterior lip of the cervix was infiltrated with 2 cc of 0.25% Marcaine without epinephrine. A single-tooth tenaculum was then used to grasp and hold the anterior lip of the cervix. A paracervical block was performed with 4 cc of quarter percent Marcaine injected into the 4 and 8:00 paracervical spaces respectively. The uterus was sounded to 10 cm. The cervix was then sequentially dilated to a maximum of 18 [place] and a 7 mm curved suction cannula was attached to suction and the level of suction tested. The cannula was inserted into the uterine cavity attached to suction and sequentially all 4 quadrants of the uterine cavity were suction curetted until minimal tissue returned. The suction cannula was then removed a banjo curette was used to perform a gentle curetting of all 4 quadrants of the uterine cavity. A final insertion of the suction cannula and suction curetting of all 4 q uadrants was performed with minimal tissue returned. All instruments were removed from the vagina tenaculum site was hemostatic at the completion of the procedure. Patient was awakened and transported to recovery area in stable condition. All sponge lap needle counts correct x2
[2023-05-21] MEDS: LORazepam 2 MG/ML VIAL 0.5 MG IVP (09:01)
--- NOTE | 2023-05-21 15:42 | W.ANESPOSTOP ---
Postoperative Evaluation Date, Time and Location Date Performed: 05/21/23 Time Performed: 08:12 Patient Location: Day Surgery Unit Vital Signs Most Recent Imported Vital Signs: Most Recent Vital Signs Temp Pulse Resp BP Pulse Ox 36.4 C L 77 16 107/62 100 05/21/23 09:50 05/21/23 09:50 05/21/23 09:50 05/21/23 09:50 05/21/23 09:50 Pain Score Most Recent Pain Score: Most Recent Pain Score Pain Level 0 05/21/23 09:22 Assessment Mental Status: Awake (Alert & Oriented to Patient Baseline) Airway and Respiratory Function: Patent airway with normal (patient baseline) respiratory exam Cardiovascular Function: Hemodynamically Stable Hydration Status: Adequately Hydrated Nausea & Vomiting: No Nausea or Vomiting Pain: Pt. Denies Any Pain Peripheral Nerve Block: Patient did not receive a nerve block
== END 2023-05-21 10:17 | disposition home or self-care (01) ==
PROVIDERS: PCP Nurse Practitioner Family; Visit Provider Obstetrics & Gynecology Gynecology
PROC: (CPT 59841; principal; 2023-05-21 07:30)
DX: O02.1 Missed abortion (principal); Z3A.10 10 weeks gestation of pregnancy; N88.8 Other specified noninflammatory disorders of cervix uteri
CPT/HCPCS: 59820; 88305; 88361; J0131; J0665; J1885; J2001; J2060; J2250; J2704; J3010

== ENCOUNTER 2023-06-03 11:47 | Outpatient (CLI) | payer OTHER, MEDICAID, SELFPAY ==
[2023-06-03 12:54] LABS: HCG Quant, Pregnancy 137 mIU/mL (1-3); TSH (W/Ref FT4) 0.79 uIU/mL (0.36-3.74)
== END 2023-06-03 11:48 | disposition home or self-care (01) ==
LOC: LBO 11:48
PROVIDERS: PCP Nurse Practitioner Family; Visit Provider Obstetrics & Gynecology Gynecology
DX: Z98.890 Other specified postprocedural states (principal); O02.1 Missed abortion; R00.0 Tachycardia, unspecified
CPT/HCPCS: 36415; 84443; 84702

== ENCOUNTER 2023-08-12 10:22 | Outpatient (REF) | payer OTHER, MEDICAID, SELFPAY | END 2023-08-12 10:23 | disposition home or self-care (01) | LOC: LBN 10:22 | PROVIDERS: PCP Nurse Practitioner Family; Visit Provider Nurse Practitioner Family | DX: J02.9 Acute pharyngitis, unspecified (principal) | CPT/HCPCS: 87070 ==

== ENCOUNTER 2023-11-17 16:19 | Emergency (ER) | payer OTHER, MEDICAID, SELFPAY ==
--- NOTE | 2023-11-17 16:15 | RT.EKG_ITS ---
APPROVED REPORT Exam: Resting ECG Reason for Exam: heart palps Patient Location: E HR:93 bpm ECG Measurements Heart Rate 93 AXIS NV 130 P 60 QRSd 80 QRS 57 QT 392 T 46 QTc 488 Conclusion Sinus rhythm...normal P axis, V-rate 60- 99 Physician: no stemi, intervals stable
[2023-11-17 16:21] VITALS: BP 138/90; PULSE 112; RESP 16; TEMP 36.4; O2SAT 97
[2023-11-17] MEDS: Lactated Ringers 1,000 ML 1000 ML IV (17:35)
[2023-11-17 17:42] LABS: Abs Immature Grans 0.01 10^3/uL (0.0-0.06); Absolute Basophil Count 0.04 10^3/uL (0.0-0.2); Absolute Eosinophil Count 0.07 10^3/uL (0.0-0.7); Absolute Lymphocyte Count 2.53 10^3/uL (1.2-3.4); Absolute Monocyte Count 0.43 10^3/uL (0.1-0.8); Absolute Neutrophil Count 3.62 10^3/uL (1.2-6.7); Basophils % 0.6 %; HCT 41.1 % (36.0-46.0); Immature Grans % 0.1 %; Lymphocytes % 37.8 %; MCH 31.2 pg (27.0-33.0); MCHC 34.1 % (32.0-36.0); MCV 92 fL (80-95); MPV 9.1 fL (8.0-11.0); Monocytes % 6.4 %; Neutrophils % 54.1 %; Platelet Count 333 10^3/uL (130-400); RBC 4.49 10^6/uL (3.93-5.22); RDW 11.7 % (11.7-14.6); RDW-SD 39.6 fL
[2023-11-17 18:08] LABS: ALT 19 U/L (14-59); AST 21 U/L (15-37); Albumin 3.9 g/dL (3.4-5.0); Alkaline Phosphatase 31 U/L (46-116); Anion Gap 8.6 mmol/L (3-11); BUN 8 mg/dL (7-18); Bilirubin, Total 1.11 mg/dL (0.2-1.0); CO2 26.4 mmol/L (21.0-32.0); CREATININE 0.9 mg/dL (0.55-1.02); Calcium 9.6 mg/dL (8.5-10.1); Chloride 104 mmol/L (98-107); Estimated GFR 89.86 (mL/min/1.73m2); Glucose 90 mg/dL (74-106); Potassium 3.8 mmol/L (3.5-5.1); Sodium 139 mmol/L (136-145); TSH (W/Ref FT4) 2.28 uIU/mL (0.36-3.74); Total Protein 7.7 g/dL (6.4-8.2); Troponin I < 50 ng/L (< or =60)
[2023-11-17 18:14] LABS: D-Dimer 653 ng/mlFEU (<500)
--- NOTE | 2023-11-17 19:12 | NUR.NOTE ---
Nursing Note: flushed oneill cath with 40 CC saline got 40 cc back out. drained bladder of 700 cc trini red urine. Pt has relief and is still draining at this time
[2023-11-17] MEDS: Omnipaque 350 MG/ML 100 ML BTL IJ (19:45)
[2023-11-17] MEDS: Normal Saline - Diluent 50 ML VIAL IJ (19:46)
--- NOTE | 2023-11-17 19:46 | DI.CT_ITS ---
Exam(s) CT CHEST PE CTA EXAM: CT CHEST PE CTA CLINICAL HISTORY: tachy, eval for PE. TECHNIQUE: Imaging Protocol: Axial CT angiography was performed with multi-slice acquisition and mu lti-planar and/or 3D reconstructions. CONTRAST MATERIAL: Intravenous: Omnipaque 350 contrast volume:100 mL COMPARISON: No exams were available for comparison FINDINGS: Tracheobronchial tree: Patent where visualized. No bronchiectasis. Pulmonary parenchyma: No consolidation or dominant measurable mass. No architectural distortion. Pulmonary Arteries: No evidence of filling defect to suggest pulmonary emboli. Mediastinum and Uzma: No dominant adenopathy or fluid collection. The esophagus is unremarkable. Visualized thyroid gland: Unremarkable. Pleura: No effusion or pneumothorax. Heart: The heart is not dilated. No coronary artery calcifications are seen. No pericardial effusion. Aorta: Thoracic aorta non-dilated. No evidence of dissection. Upper abdomen: Unremarkable. Soft tissues: Unremarkable. Bones: Within normal limits for the patient's age. IMPRESSION: No evidence of pulmonary embolism, thoracic aortic dissection or aneurysm. RADIATION DOSE DELIVERED: 67.47mGy.cm Total DLP DATA REPOSITORY: All CT scans at this facility are submitted to the National Radiology Data Registry (NRDR) Dose Index Registry (DIR) with the [employer] (ACR). RADIATION OPTIMIZATION: All CT scans at this facility use at least one of these dose optimization te chniques: automated exposure control; mA and/or kV adjustment per patient size (includes targeted exa ms where dose is matched to clinical indication); or iterative reconstruction.
--- NOTE | 2023-11-17 20:26 | DI.VRAD_ITS ---
PROCEDURE INFORMATION: Exam: CTA Chest With Contrast Exam date and time: 11/17/2023 19:34 Age: 28 years old Clinical indication: Other: Tachycardia; Patient HX: Tachy, eval for pe TECHNIQUE: Imaging protocol: Computed tomographic angiography of the chest with contrast. Exam focused on the arteries. 3D rendering (Not supervised by radiologist): MIP and/or 3D reconstructed images were created by the technologist. Radiation optimization: All CT scans at this facility use at least one of these dose optimization techniques: automated exposure control; mA and/or kV adjustment per patient size (includes targeted exams where dose is matched to clinical indication); or iterative reconstruction. Contrast material: [id number]; Contrast volume: 100 ml; Contrast route: INTRAVENOUS (IV); COMPARISON: CR XR CHEST 2V PA LATERAL 02/11/2022 14:58 FINDINGS: Pulmonary arteries: No pulmonary emboli. Aorta: No aortic aneurysm. No aortic dissection. Lungs: No consolidation. No masses. Pleural spaces: No pneumothorax. No pleural effusion. Heart: No cardiomegaly. No pericardial effusion. Lymph nodes: No enlarged lymph nodes. Bones/joints: No acute fracture. Soft tissues: No suspicious lesions. IMPRESSION: No pulmonary emboli are seen. Dictated and Authenticated by: Susanna Nelson MD. Ordering:DENNY Ulloa MD
--- NOTE | 2023-11-17 20:38 | W.ED.GENAD ---
Discharge Plan Disposition Patient Disposition: Home Condition: Good Discharge Details Clinical Impression: Heart palpitations Primary Care Provider: Unknown,Unknown ED Provider: Artemio Appiah Home Meds and New Rx's Prescriptions: No Action norgestimate-ethinyl estradiol [Sprintec (28)] 0.25-35 mg-mcg tablet 1 tab PO DAILY Qty: 84 3RF cetirizine 10 mg tablet 10 mg PO DAILY Patient Comments: takes 2 tabs daily if needed docusate sodium [Colace] 100 mg capsule 100 mg PO BID Qty: 60 6RF fluconazole 150 mg tablet 150 mg PO QWEEK 30 Days Qty: 5 2RF albuterol sulfate 0.63 mg/3 mL solution for nebulization 0.63 mg inhalation TID PRN doxycycline hyclate 100 mg capsule 100 mg PO DAILY Patient Comments: TAKE ONE CAPSULE BY MOUTH TWICE A DAY FOR 14 DAYS THEN 1 CAPSULE DAILY FOR 14 DAYS. TAKE ON A FULL STOMACH, LOULOU WITH GLASS OF WATER, AND D Discharge Instructions Instructions: Palpitations ED Additional Instructions: At this time your workup shows no evidence of blood clot, significant heart abnormality, thyroid dysfunction, or other concerning etiology. Your electrolytes are normal. As we discussed together the next step is further outpatient testing, as well as Holter monitor. You will be contacted by respiratory therapy to set this up. Please stay well-hydrated, avoid aggressive exercise, and monitor your symptoms on your watch closely. Avoid cut down on your caffeine intake. If you notice any worsening of your symptoms, or any new symptoms such as vomiting, diarrhea, fever, chills, shortness of breath, chest pain, numbness, weakness, or fainting , please return immediately to the emergency department for reevaluation. Please follow up with your primary care provider as soon as possible for reassessment and reevaluation. As always, it was a pleasure participating in your medical care today. Discharge Orders Other Ambulatory Orders: Holter Monitor (Routine) Timeframe: 1 Week Facility: [facility] - Location: Respiratory Therapy Ordered By: Artemio Appiah HPI General Date/Time Provider Initiated Documentation: 11/17/23 16:37. 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 Patient states that intermittently over the last week her heart rate has significantly gone up with light activity. When she goes and exercises even mildly her heart rate will go up to 150. When she walks around and it stays in the low 100s. She has noticed a heavy sensation in her chest during these episodes. She does drink about 2 coffees and 1 energy drink whenever she works, and this is during night shifts. However she does not have that much caffeine during the day. She denies any cocaine, methamphetamine, or tobacco use. No other complaints at this time. She denies any history of PE, DVT, recent long flight surgeries or procedures. Related Data Home Medications ?Medication ?Instructions ?Recorded ?Confirmed cetirizine 10 mg tablet 10 mg PO DAILY 10/01/20 11/17/23 albuterol sulfate 0.63 mg/3 mL 0.63 mg inhalation TID PRN 12/04/20 11/17/23 solution for nebulization docusate sodium 100 mg capsule 100 mg PO BID #60 caps 04/27/23 11/17/23 (Colace) norgestimate 0.25 mg-ethinyl 1 tab PO DAILY #84 tabs 07/28/23 11/17/23 estradiol 35 mcg tablet (Sprintec (28)) fluconazole 150 mg tablet 150 mg PO QWEEK 30 days #5 tabs 10/28/23 11/17/23 doxycycline hyclate 100 mg capsule 100 mg PO DAILY 11/17/23 11/17/23 Previous Rx's ?Medication ?Instructions ?Recorded docusate sodium 100 mg capsule 100 mg PO BID #60 caps 04/27/23 (Colace) norgestimate 0.25 mg-ethinyl 1 tab PO DAILY #84 tabs 07/28/23 estradiol 35 mcg tablet (Sprintec (28)) fluconazole 150 mg tablet 150 mg PO QWEEK 30 days #5 tabs 10/28/23 Allergies Allergy/AdvReac Type Severity Reaction Status Date / Time tree and shrub pollen Allergy Severe asthma Verified 11/17/23 16:27 attack General Stated Complaint: Palpitatns JULISSA: 3 Review of Systems All systems reviewed & are unremarkable except as noted in HPI and below Exam Narrative Exam Narrative: 1.Const: Well-nourished, Well-developed, appearing stated age 2.Eyes: PERRL, no conjunctival injection, and symmetrical lids. 3.ENT: Atraumatic external nose and ears. Moist MM. Neck: Symmetric, trachea midline, No thyromegaly. 4.CVS: +S1/S2, No murmurs or gallops. Peripheral pulses 2+ and equal in all extremities. Brisk capillary refill in all extremities. 5.RESP: Unlabored respiratory effort. Clear to auscultation bilaterally. No wheezes rales or rhonchi 6.GI: Soft, Nontender/Nondistended, No hepatosplenomegaly. No guarding or rebound. 7.MSK: Normocephalic/Atraumatic, Extremities w/o deformity or ttp No cyanosis or clubbing, Normal movement of all extremities. No calf tenderness 8.Skin: Warm, Dry. No rashes or lesions. 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 Sensation grossly intact, no focal neurologic deficits. 10.Psych: (AAO) x3. Appropriate mood and affect Course Vital Signs Vital signs: Vital Signs Temperature 36.4 C 11/17/23 16:21 Pulse 112 H 11/17/23 16:21 Respiratory Rate 16 11/17/23 16:21 Blood Pressure 138/90 11/17/23 16:21 Pulse Oximetry 97 11/17/23 16:21 Temperature 36.4 C 11/17/23 16:21 Pulse 112 H 11/17/23 16:21 Respiratory Rate 16 11/17/23 16:21 Respiratory Effort Normal 11/17/23 16:29 Blood Pressure 138/90 11/17/23 16:21 Pulse Oximetry 97 11/17/23 16:21 Oxygen Delivery Method Room Air 11/17/23 16:21 Oxygen Flow Rate 0 11/17/23 16:21 Pain Level 0 11/17/23 16:21 Lab/Test Results Lab/Test Results: Laboratory Tests Range/Units 11/17/23 17:32 WBC (4.4-10.8) 10^3/uL 6.70 RBC (3.93-5.22) 10^6/uL 4.49 Hgb (11.2-15.7) g/dL 14.0 Hct (36.0-46.0) % 41.1 MCV (80-95) fL 92 MCH (27.0-33.0) pg 31.2 MCHC (32.0-36.0) % 34.1 RDW (11.7-14.6) % 11.7 Plt Count (130-400) 10^3/uL 333 MPV (8.0-11.0) fL 9.1 Immature Gran % % 0.1 Neutrophils % % 54.1 Lymphocytes % % 37.8 Monocytes % % 6.4 Eosinophils % % 1.0 Basophils % % 0.6 Nucleated RBC % (0.0-0.3) % 0.0 Absolute Neutrophils (1.2-6.7) 10^3/uL 3.62 Absolute Lymphocytes (1.2-3.4) 10^3/uL 2.53 Absolute Monocytes (0.1-0.8) 10^3/uL 0.43 Absolute Eosinophils (0.0-0.7) 10^3/uL 0.07 Absolute Basophils (0.0-0.2) 10^3/uL 0.04 D-Dimer (<500) ng/mlFEU 653 H Sodium (136-145) mmol/L 139 Potassium (3.5-5.1) mmol/L 3.8 Chloride (98-107) mmol/L 104 Carbon Dioxide (21.0-32.0) mmol/L 26.4 Anion Gap (3-11) mmol/L 8.6 BUN (7-18) mg/dL 8 Creatinine (0.55-1.02) mg/dL 0.9 Est GFR (CKD-EPI 2020) (mL/min/1.73m2) 89.86 Glucose (74-106) mg/dL 90 Calcium (8.5-10.1) mg/dL 9.6 Total Bilirubin (0.2-1.0) mg/dL 1.11 H AST (15-37) U/L 21 ALT (14-59) U/L 19 Alkaline Phosphatase (46-116) U/L 31 L Troponin I High Sens (< or =60) ng/L < 50 Total Protein (6.4-8.2) g/dL 7.7 Albumin (3.4-5.0) g/dL 3.9 TSH (0.36-3.74) uIU/mL 2.28 POC- Test(urine) Negative Medical Decision Making This is a very pleasant 28-year-old female with past medical history of previous palpitations in the past which has been attributed to anxiety, 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 Patient states that intermittently over the last week her heart rate has significantly gone up with light activity. When she goes and exercises even mildly her heart rate will go up to 150. When she walks around and it stays in the low 100s. She has noticed a heavy sensation in her chest during these episodes. She does drink about 2 coffees and 1 energy drink whenever she works, and this is during night shifts. However she does not have that much caffeine during the day. She denies any cocaine, methamphetamine, or tobacco use. No other complaints at this time. She denies any history of PE, DVT, recent long flight surgeries or procedures. Exam demonstrates well-appearing female, vital signs stable here. Patient's smart watch does show her heart rates increasing to the 150s at times. Uncertain what the activity level was during these episodes. Patient is otherwise hemodynamically stable here at this time. EKG is benign. Differential includes PE, thyroid dysfunction, dehydration less likely. Will evaluate for concerning etiologies monitor closely and reassess. 11:13 PM Laboratory workup has returned, troponin normal, D-dimer was elevated at 653, CTA was ordered and shows no evidence of pulmonary embolism per radiology. Electrolytes normal, renal function normal, thyroid function normal. Patient remains hemodynamically stable. Will place outpatient referral for Holter monitor, patient will require further outpatient testing. She does not have a PCP, we will place a referral for 1. At this time I recommend avoidance of significant caffeinated products, avoidance of aggressive exercise, and gentle mild regular exercise. Symptoms at this time appear clinically inconsistent with A-fib with RVR, however Holter will help further differentiation. The patient states that she has had episodes like this in the past, and while they have been attributed to anxiety I do feel that continued further nonemergent outpatient workup is indicated. Discussed all of this with the patient, she understands. Discussed red flags for which to return. I have extensively reviewed the treatment plan and discharge instructions with the patient. I have addressed all patient concerns at this time. The patient was made aware of what symptoms to monitor for that would warrant a return to the emergency department. Discussed the plan with the patient, they demonstrate verbal understanding and agreement with our assessment and plan at this time. The documentation in this chart was dictated using [employer] dictation software. Please excuse any dictation errors. IFINDINGS: Pulmonary arteries: No pulmonary emboli. Aorta: No aortic aneurysm. No aortic dissection. Lungs: No consolidation. No masses. Pleural spaces: No pneumothorax. No pleural effusion. Heart: No cardiomegaly. No pericardial effusion. Lymph nodes: No enlarged lymph nodes. Bones/joints: No acute fracture. Soft tissues: No suspicious lesions. IMPRESSION: No pulmonary emboli are seen. Thank you for allowing us to participate in the care of your patient. Dictated and Authenticated by: Susanna Nelson MD 11/17/2023 8:26 PM Eastern Time ([place] & [place]) Quality:SDOH Health Related Social Needs: No Data to Display PFSH All Active Problems Heart palpitations (Acute) Tachycardia (Acute) Palpitations (Acute) Hemorrhoid (Acute) Medical History Irregular menses Dysuria Asthma action plan declined Marijuana use Breast lump 02/2020. Right breast. Normal clinical breast exam. Surgical History H/O dilation and curettage 05/21/23. 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 CRL 6w. Family History Mother Asthma Maternal Uncle Substance abuse Social History Smoking/Tobacco Use Status: Former Tobacco Use Tobacco: How many years used: 1 Smoking risk assessment performed?: Yes Alcohol Intake: current Alcohol Intake frequency: 0-2 drinks per day Drug use: Never Substance use type: does not use Details: pt. reports prior to last night she had not had alcohol for 6 weeks Household members: children and other Details: [employer]. Number of Children: 1 Do you feel safe at home: Yes Do you feel safe in your relationship?: Yes Female Reproductive History Menstrual control method: condoms History History 3 Para 2 Hx # Term Pregnancies 2 Multiple births 0 Hx # Pregnancies 0 Ectopic pregnancies 0 AB induced 0 Hx Number of Living Children 2 AB spontaneous 0 Past Pregnancies Del. Date GA/Weeks # Preg Succ Route Wgt Sex Labor Lgth Anesthesia Location Prov Complic 03/05/18 39 No vaginal 3742.137 g Male [facility] Inoc[facility] Frank CNM 12/05/20 39 No vaginal 3572.04 g Male 7hrs 30 min [facility] Delivery Date: 03/05/18 Last Updated by: Sushma Whelan placenta with trailing membranes, intact with 3VC. Delivery Date: 12/05/20 Last Updated by: Sushma Epperson LPN Induced due to Preeclampsia, Right hand presented with head, short cord
[2023-11-17 20:47] VITALS: BP 129/92; PULSE 74; RESP 16; O2SAT 100
== END 2023-11-17 20:47 | disposition home or self-care (01) ==
PROVIDERS: Emergency Provider Student in an Organized Health Care Education/Training Program
DX: R00.2 Palpitations (principal)
CPT/HCPCS: 36415; 71275; 80053; 81025; 93005; 96360; 99285; 84443; 84484; 85025; 85379; 93010; 99283; J3490

== ENCOUNTER 2023-11-26 08:47 | Outpatient (RCR) | payer OTHER, MEDICAID, SELFPAY ==
--- NOTE | 2023-11-26 08:45 | HOLTER_ITS ---
APPROVED REPORT Conclusion This is a 48-hour Holter monitor Rhythm throughout was sinus with an average heart rate of 77. Minimum was 52, maximum 132 There were a total of 2 isolated premature ventricular contractions There were no other dysrhythmias seen Symptoms were reported which had no correlation to any dysrhythmia
== END 2023-12-13 23:59 | disposition home or self-care (01) ==
LOC: CARDOPNVT 08:47
PROVIDERS: Visit Provider Internal Medicine Cardiovascular Disease
DX: R00.2 Palpitations (principal)
CPT/HCPCS: 93225; 93226

== ENCOUNTER 2023-12-23 18:24 | Outpatient (REF) | payer OTHER, MEDICAID, SELFPAY | END 2023-12-23 18:25 | disposition home or self-care (01) | LOC: LBN 18:24 | PROVIDERS: Visit Provider Physician Assistant | DX: J02.9 Acute pharyngitis, unspecified (principal) | CPT/HCPCS: 87070 ==

== ENCOUNTER 2024-03-01 16:19 | Outpatient (REF) | payer OTHER, MEDICAID, SELFPAY | END 2024-03-01 16:20 | disposition home or self-care (01) | LOC: LBN 16:19 | PROVIDERS: PCP Nurse Practitioner Family; Visit Provider Obstetrics & Gynecology | DX: N89.8 Other specified noninflammatory disorders of vagina (principal); R79.89 Other specified abnormal findings of blood chemistry; Z11.3 Encounter for screening for infections with a predominantly sexual mode of transmission | CPT/HCPCS: 87480; 87510; 87660 ==

== ENCOUNTER 2024-03-03 12:30 | Outpatient (CLI) | payer OTHER, MEDICAID, SELFPAY ==
[2024-03-03 12:13] LABS: D-Dimer 440 ng/mlFEU (<500)
[2024-03-03 19:14] LABS: HIV-1/2 Ag & Ab Screen Negative (Negative)
[2024-03-06 11:41] LABS: Chlamydia Result Negative (Negative); GC Result Negative (Negative)
[2024-03-06 13:16] LABS: Syphilis Serology (RPR) Negative (Negative)
[2024-03-06 23:16] LABS: HBs Antibody, Qual Negative (See Note); HBs Antibody, Quant <3.1 mIU/mL (See Note); Hepatitis B Core Antibody Negative (Negative); Hepatitis B surface Ag Negative (Negative); Hepatitis C Ab w Rflx HCV PCR Negative (Negative)
== END 2024-03-03 12:31 | disposition home or self-care (01) ==
LOC: LBO 12:32
PROVIDERS: PCP Nurse Practitioner Family; Visit Provider Obstetrics & Gynecology
DX: Z11.3 Encounter for screening for infections with a predominantly sexual mode of transmission (principal); R79.89 Other specified abnormal findings of blood chemistry
CPT/HCPCS: 36415; 86704; 86706; 86803; 87340; 87389; 87491; 87591; 85379; 86592

== ENCOUNTER 2024-04-12 02:37 | Outpatient (CLI) | payer OTHER, MEDICAID, SELFPAY ==
[2024-04-12 04:08] LABS: Calculated LDL 102 mg/dL (<100); Cholesterol 200 mg/dL (<200); HDL Cholesterol 73 mg/dL (40-60); Triglyceride 125 mg/dL (<150)
== END 2024-04-12 02:38 | disposition home or self-care (01) ==
PROVIDERS: PCP Nurse Practitioner Family; Visit Provider Nurse Practitioner Family
DX: Z13.220 Encounter for screening for lipoid disorders (principal)
CPT/HCPCS: 80061

== ENCOUNTER 2024-07-27 10:29 | Outpatient (REF) | payer OTHER, MEDICAID, SELFPAY | END 2024-07-27 10:30 | disposition home or self-care (01) | LOC: LBN 10:29 | PROVIDERS: PCP Nurse Practitioner Family; Visit Provider Nurse Practitioner Family | DX: J02.9 Acute pharyngitis, unspecified (principal) | CPT/HCPCS: 87070 ==

== ENCOUNTER 2024-07-31 09:25 | Outpatient (REF) | payer OTHER, MEDICAID, SELFPAY ==
[2024-08-01 12:13] LABS: Chlamydia Result Negative (Negative); GC Result Negative (Negative)
== END 2024-07-31 09:26 | disposition home or self-care (01) ==
LOC: LBN 09:25
PROVIDERS: PCP Nurse Practitioner Family; Visit Provider Obstetrics & Gynecology
DX: Z12.4 Encounter for screening for malignant neoplasm of cervix (principal)
CPT/HCPCS: 87491; 87591; 88142

== ENCOUNTER 2025-01-26 00:41 | Outpatient (CLI) | payer OTHER, SELFPAY ==
[2025-01-26 18:00] LABS: HBs Antibody, Quant 566.5 mIU/mL (See Note); Hepatitis B Surface Ab Positive (See Note)
== END 2025-01-26 00:42 | disposition home or self-care (01) ==
LOC: LBO 00:41
PROVIDERS: PCP Nurse Practitioner Family; Visit Provider Nurse Practitioner Family
DX: Z23 Encounter for immunization (principal)
CPT/HCPCS: 86706